=== PATIENT | male | born 1980 | race African-American/Black ===

== ENCOUNTER 2018-07-26 18:09 | Emergency (ER) | payer SELFPAY ==
[2018-07-26 18:34] LABS: #Basophils 0.1 thou/uL (0.0-0.2); #Eosinphils 0.1 thou/uL (0.0-0.7); #Lymphocytes 2.1 thou/uL (1.20-3.40); #Monocytes 0.7 thou/uL (0.11-0.59); #Neutrophils 3.6 thou/uL (1.40-6.50); %Basophils 1.3 % (0.0-1.0); %Monocytes 10.7 % (0.0-10.0); Hemoglobin 13.2 g/dL (14.0-18.0); Mean Corpuscular HGB CONC 32.3 g/dL (32.0-36.0); Mean Corpuscular Hemoglobin 28.7 pg (27.0-31.0); Mean Corpuscular Volume 88.9 fL (78.0-98.0); Mean Platelet Volume 8.7 fL (7.4-10.4); Platelet Count 278 thou/uL (130-400); RBC Distribution Width 10.6 % (11.5-14.5); Red Blood Cell (RBC) Count 4.61 mill/uL (4.70-6.10); White Blood Cell (WBC) Count 6.6 thou/uL (4.8-10.8)
[2018-07-26 18:57] LABS: ALT (SGPT) 24 U/L (8-55); AST (SGOT) 38 U/L (5-34); Albumin 4.5 g/dL (3.5-5.0); Alkaline Phosphatase 83 U/L (40-150); Anion Gap 13 mmol/L (10-20); BUN (Urea Nitrogen) 11 mg/dL (8.9-20.6); Bilirubin, Total 1.4 mg/dL (0.2-1.2); Calc. Creatinine Clearance 0 mL/min (70-130); Calcium 9.4 mg/dL (7.8-10.44); Carbon Dioxide 27 mmol/L (22-29); Chloride 97 mmol/L (98-107); Estimated GFR-MDRD 72; Globulin 3.7 g/dL (2.4-3.5); Glucose 80 mg/dL (70-105); Lipase 23 U/L (8-78); Potassium 3.4 mmol/L (3.5-5.1); Protein, Total 8.2 g/dL (6.0-8.3); Sodium 134 mmol/L (136-145)
== END 2018-07-26 19:10 | disposition home or self-care (01) ==
LOC: ERS 18:09
DX: R11.2 Nausea with vomiting, unspecified (principal); I10 Essential (primary) hypertension; F17.210 Nicotine dependence, cigarettes, uncomplicated
CPT/HCPCS: 36415; 80053; 83690; 85025; 99284

== ENCOUNTER 2018-08-21 10:42 | Emergency (ER) | payer SELFPAY ==
[2018-08-21 11:16] LABS: #Basophils 0.1 thou/uL (0.0-0.2); #Eosinphils 0.1 thou/uL (0.0-0.7); #Lymphocytes 2.3 thou/uL (1.20-3.40); #Monocytes 0.6 thou/uL (0.11-0.59); #Neutrophils 2.1 thou/uL (1.40-6.50); %Basophils 2.2 % (0.0-1.0); %Eosinophils 1.3 % (0.0-10.0); %Lymphocytes 44.1 % (21.0-51.0); %Monocytes 11.5 % (0.0-10.0); %Neutrophils 40.9 % (42.0-75.0); Hemoglobin 11.3 g/dL (14.0-18.0); Mean Corpuscular HGB CONC 34.4 g/dL (32.0-36.0); Mean Corpuscular Hemoglobin 29.8 pg (27.0-31.0); Mean Corpuscular Volume 86.7 fL (78.0-98.0); Mean Platelet Volume 8.7 fL (7.4-10.4); Platelet Count 279 thou/uL (130-400); RBC Distribution Width 10.5 % (11.5-14.5); White Blood Cell (WBC) Count 5.2 thou/uL (4.8-10.8)
[2018-08-21 11:38] LABS: ALT (SGPT) 27 U/L (8-55); AST (SGOT) 35 U/L (5-34); Albumin 3.9 g/dL (3.5-5.0); Alkaline Phosphatase 61 U/L (40-150); Anion Gap 11 mmol/L (10-20); BUN (Urea Nitrogen) 10 mg/dL (8.9-20.6); Bilirubin, Total 1.1 mg/dL (0.2-1.2); Calc. Creatinine Clearance 0 mL/min (70-130); Calcium 8.8 mg/dL (7.8-10.44); Carbon Dioxide 26 mmol/L (22-29); Chloride 94 mmol/L (98-107); Estimated GFR-MDRD 87; Globulin 2.7 g/dL (2.4-3.5); Glucose 85 mg/dL (70-105); Lipase 17 U/L (8-78); Potassium 3.9 mmol/L (3.5-5.1); Protein, Total 6.6 g/dL (6.0-8.3); Sodium 127 mmol/L (136-145)
[2018-08-21 11:50] LABS: Bilirubin Negative (Negative); Blood, Urine Negative (Negative); Clarity CLEAR (Clear); Glucose, Urine (Dipstick) Negative (Negative); Leukocyte Negative (Negative); Nitrite Negative (Negative); Protein, Urine (Dipstick) Negative (Neg-Trace); Specific Gravity, Urine 1.011 (1.002-1.036); pH, Urine 7.5 (5.0-9.0)
[2018-08-21] MEDS ORDERED: Ondansetron PF 4 MG/2 ML Vial ONE (13:34)
[2018-08-21] MEDS ORDERED: Ketorolac Tromethamine 30 MG/ML VIAL ONE (13:34)
== END 2018-08-21 14:18 | disposition home or self-care (01) ==
LOC: ERS 10:42
DX: R10.9 Unspecified abdominal pain (principal); Z71.6 Tobacco abuse counseling; I10 Essential (primary) hypertension; F17.210 Nicotine dependence, cigarettes, uncomplicated; Z79.899 Other long term (current) drug therapy
CPT/HCPCS: 36415; 80053; 81003; 83690; 85025; 96361; 96374; 96375; 99406; J1885; J2405

== ENCOUNTER 2018-11-18 17:27 | Emergency (ER) | payer SELFPAY ==
[2018-11-18] MEDS ORDERED: Ketorolac Tromethamine 30 MG/ML VIAL ONE (18:15)
[2018-11-18] MEDS ORDERED: Acetaminophen 325 MG TAB ONE (18:15)
== END 2018-11-18 18:53 | disposition home or self-care (01) ==
LOC: ERS 17:27
DX: G89.29 Other chronic pain (principal); M54.9 Dorsalgia, unspecified; R05 Cough; I10 Essential (primary) hypertension; F17.210 Nicotine dependence, cigarettes, uncomplicated; Z79.899 Other long term (current) drug therapy
CPT/HCPCS: 99281; J1885

== ENCOUNTER 2018-12-24 14:24 | Emergency (ER) | payer SELFPAY ==
[2018-12-24] MEDS ORDERED: Ondansetron PF 4 MG/2 ML Vial ONE (16:42)
[2018-12-24 16:45] LABS: #Basophils 0.1 thou/uL (0.0-0.2); #Eosinphils 0.2 thou/uL (0.0-0.7); #Lymphocytes 2.5 thou/uL (1.20-3.40); #Monocytes 0.7 thou/uL (0.11-0.59); #Neutrophils 2.1 thou/uL (1.40-6.50); %Basophils 1.2 % (0.0-1.0); %Eosinophils 3.7 % (0.0-10.0); %Monocytes 13.2 % (0.0-10.0); %Neutrophils 37.9 % (42.0-75.0); Hemoglobin 11.1 g/dL (14.0-18.0); Mean Corpuscular HGB CONC 33.3 g/dL (32.0-36.0); Mean Corpuscular Hemoglobin 30.3 pg (27.0-31.0); Mean Corpuscular Volume 91.2 fL (78.0-98.0); Mean Platelet Volume 8.9 fL (7.4-10.4); Platelet Count 206 thou/uL (130-400); RBC Distribution Width 10.8 % (11.5-14.5); Red Blood Cell (RBC) Count 3.66 mill/uL (4.70-6.10); White Blood Cell (WBC) Count 5.6 thou/uL (4.8-10.8)
[2018-12-24 17:06] LABS: ALT (SGPT) 59 U/L (8-55); AST (SGOT) 56 U/L (5-34); Albumin 3.9 g/dL (3.5-5.0); Alkaline Phosphatase 56 U/L (40-150); Anion Gap 12 mmol/L (10-20); BUN (Urea Nitrogen) 19 mg/dL (8.9-20.6); Bilirubin, Total 0.6 mg/dL (0.2-1.2); Calc. Creatinine Clearance 0 mL/min (70-130); Calcium 9.2 mg/dL (7.8-10.44); Carbon Dioxide 24 mmol/L (22-29); Chloride 99 mmol/L (98-107); Estimated GFR-MDRD 79; Globulin 2.7 g/dL (2.4-3.5); Glucose 98 mg/dL (70-105); Potassium 3.6 mmol/L (3.5-5.1); Protein, Total 6.6 g/dL (6.0-8.3); Sodium 131 mmol/L (136-145)
[2018-12-24] MEDS ORDERED: Ketorolac Tromethamine 30 MG/ML VIAL ONE (18:22)
== END 2018-12-24 18:33 | disposition home or self-care (01) ==
LOC: ERS 14:24
DX: E86.0 Dehydration (principal); I10 Essential (primary) hypertension; F17.210 Nicotine dependence, cigarettes, uncomplicated
CPT/HCPCS: 80053; 85025; 93005; 96361; 96374; 96375; J1885; J2405

== ENCOUNTER 2019-08-11 08:38 | Inpatient (IN) | payer OTHER, SELFPAY ==
[2019-08-11] MEDS ORDERED: Iopamidol-370 76% 500 ML 1 ML ONE (09:25)
[2019-08-11 09:45] LABS: ALT (SGPT) 34 U/L (8-55); AST (SGOT) 46 U/L (5-34); Albumin 4.3 g/dL (3.5-5.0); Alkaline Phosphatase 87 U/L (40-110); Anion Gap 18 mmol/L (10-20); BUN (Urea Nitrogen) 18 mg/dL (8.9-20.6); Bilirubin, Total 1.1 mg/dL (0.2-1.2); CK (CPK) 699 U/L (30-200); Calc. Creatinine Clearance 0 mL/min (70-130); Calcium 8.8 mg/dL (7.8-10.44); Carbon Dioxide 21 mmol/L (22-29); Chloride 101 mmol/L (98-107); Estimated GFR-MDRD 69; Globulin 3.7 g/dL (2.4-3.5); Glucose 76 mg/dL (70-105); Lipase 6 U/L (8-78); Potassium 3.7 mmol/L (3.5-5.1); Sodium 136 mmol/L (136-145)
--- NOTE | 2019-08-11 09:56 | RAD ---
PORTABLE CHEST: DATE: 08/11/2019. PROVIDED CLINICAL HISTORY: Cough and shortness of breath. FINDINGS: Cardiac silhouette appears prominent, which may be at least partially on the basis of portable techni que. There is bilateral perihilar airspace disease. There is no evidence for pleural fluid or pneum othorax. IMPRESSION: Bilateral perihilar airspace disease. This could reflect edema, pneumonia, as well as other etiologi es. Followup is recommended. POS: MARLEE
[2019-08-11] MEDS ORDERED: Azithromycin 500 MG VIAL ONE (10:06)
[2019-08-11] MEDS ORDERED: Nitroglycerin 2% Ointment 1 INCH/1 GM Packet ONE (10:06)
[2019-08-11] MEDS ORDERED: Aspirin Chewable 81 MG TAB ONE (10:06)
[2019-08-11 10:07] LABS: #Basophils 0.1 thou/uL (0.0-0.2); #Eosinphils 0.1 thou/uL (0.0-0.7); #Monocytes 0.9 thou/uL (0.11-0.59); #Neutrophils 8.4 thou/uL (1.40-6.50); %Basophils 0.5 % (0.0-1.0); %Eosinophils 0.7 % (0.0-10.0); %Lymphocytes 17.3 % (21.0-51.0); %Monocytes 7.7 % (0.0-10.0); %Neutrophils 73.9 % (42.0-75.0); Hemoglobin 11.4 g/dL (14.0-18.0); Mean Corpuscular HGB CONC 31.7 g/dL (32.0-36.0); Mean Corpuscular Hemoglobin 30.2 pg (27.0-31.0); Mean Corpuscular Volume 95.3 fL (78.0-98.0); Platelet Count 279 thou/uL (130-400); RBC Distribution Width 11.9 % (11.5-14.5); Red Blood Cell (RBC) Count 3.76 mill/uL (4.70-6.10); White Blood Cell (WBC) Count 11.3 thou/uL (4.8-10.8)
[2019-08-11 10:07] LABS: CKMB 6.4 ng/mL (0-6.6)
[2019-08-11] MEDS ORDERED: Hydroxychloroquine Sulfate 200 MG TAB PO SCH (10:30)
--- NOTE | 2019-08-11 11:03 | CT ---
Exam: CT angiogram of the chest HISTORY: Cough. Malaise. Suspect COVID COMPARISON: None TECHNIQUE: CT angiogram of the chest is performed in the axial plane. Three-dimensional reformatted i mages are submitted for interpretation FINDINGS: Mediastinum: No mass, lymphadenopathy or hematoma. HEART: Normal size. No significant pericardial fluid. Aorta: No aneurysm or dissection Upper solid abdominal viscera: No abnormality enhancement. Trachea and central bronchi: Patent Pleural spaces: Small bilateral effusions Lung parenchyma: Bilateral groundglass opacities with crazy paving. Groundglass opacities have a some what more central appearance Pneumothorax: None Osseous structures: No lytic or blastic lesions Pulmonary arteries: Adequate contrast opacification pulmonary arterial system to the level of segment al arteries. No filling defect to suggest pulmonary embolism IMPRESSION: 1. No evidence of pulmonary artery embolism to the level of the segmental arteries 2. Bilateral pleural effusions 3. Bilateral groundglass opacities, along with crazy painting. The possibility of bilateral pneumonia such as COVID cannot be excluded. The groundglass opacities that is slightly more central appearance and typically presents for COVID. Correlate for pulmonary edema.
[2019-08-11] MEDS ORDERED: Vancomycin 1 GM/200 ML BAG ONE (11:23)
[2019-08-11] MEDS ORDERED: Cefepime 2 GM VIAL ONE (11:23)
[2019-08-11] MEDS ORDERED: Lorazepam 2 MG/ML VIAL ONE (12:06)
[2019-08-11 13:20] LABS: Troponin I 0.032 ng/mL (< 0.028)
[2019-08-11] MEDS ORDERED: Ondansetron PF 4 MG/2 ML Vial IVP PRN (14:24)
[2019-08-11] MEDS ORDERED: Sodium Chloride 0.9% 1,000 ML IV SCH (14:24)
[2019-08-11] MEDS ORDERED: Ondansetron ODT 4 MG TAB SL PRN (14:24)
--- NOTE | 2019-08-11 14:33 | PDOC.HHP ---
Hospitalist HPI - History of Present Illness shortness of breath History of Present Illness: This is a 39 year old male with no past medical history who presents to the ER with shortness of breath. He is unclear when it started. He also has been having a cough but unable to describe the quality or states how long it has been going on for. He denies chest pain, chest congestion, fevers, chills, runny nose, sore throat. He works at [employer]. He does not know if he has had any sick contacts. ED Course: BP was 171/123 on arrival. Patient was afebrile. EKG showed sinus tachycardia. Troponin mildly elevated. D-dimer was elevated so CTA was done which showed no evidence of PE, bilateral pleural effusions and bilateral ground glass opacities. Patient received Iv vancomycin, cefepime, levaquin, and plaquenil and was admitted for further workup. Hospitalist ROS - Review of Systems Constitutional: denies: fever, chills Respiratory: denies: cough, dry Cardiovascular: denies: chest pain, palpitations Hospitalist History - Past Medical History Other Medical History: None - Past Surgical History Other Surgical History: Unable to obtain - Family History Other Family History: He has family that lives nearby. Does not know family history - Social History Smoking Status: Unknown if ever smoked Alcohol: reports: Occassional Occupation: He works at [employer] - Exam General Appearance: NAD, awake alert General - other findings: tachypneic, difficulty in answering questions. RR 36 Eye: PERRL, anicteric sclera ENT: normocephalic atraumatic, no oropharyngeal lesions Neck: supple, no JVD Heart: RRR, no murmur, no gallops, no rubs Respiratory: CTAB, no rales, no ronchi Respiratory - other findings: diminished breath sounds bilaterally Gastrointestinal: soft, non-tender, non-distended, normal bowel sounds Extremities: no cyanosis, no clubbing, no edema Skin: normal turgor, no lesions, no rashes Neurological: cranial nerve grossly intact, normal sensation to touch, no focal deficits, no new deficit Hospitalist Results - Labs Result Diagrams: 08/11/19 09:49 08/11/19 09:03 Lab results: WBC 11.3 thou/uL (4.8-10.8) H 08/11/19 09:49 Hgb 11.4 g/dL (14.0-18.0) L 08/11/19 09:49 Hct 35.9 % (42.0-52.0) L 08/11/19 09:49 MCV 95.3 fL (78.0-98.0) 08/11/19 09:49 Plt Count 279 thou/uL (130-400) 08/11/19 09:49 Neutrophils % 73.9 % (42.0-75.0) 08/11/19 09:49 Sodium 136 mmol/L (136-145) 08/11/19 09:03 Potassium 3.7 mmol/L (3.5-5.1) 08/11/19 09:03 Chloride 101 mmol/L (98-107) 08/11/19 09:03 Carbon Dioxide 21 mmol/L (22-29) L 08/11/19 09:03 BUN 18 mg/dL (8.9-20.6) 08/11/19 09:03 Creatinine 1.38 mg/dL (0.7-1.3) H 08/11/19 09:03 Glucose 76 mg/dL (70-105) 08/11/19 09:03 Calcium 8.8 mg/dL (7.8-10.44) 08/11/19 09:03 Total Bilirubin 1.1 mg/dL (0.2-1.2) 08/11/19 09:03 AST 46 U/L (5-34) H 08/11/19 09:03 ALT 34 U/L (8-55) 08/11/19 09:03 Alkaline Phosphatase 87 U/L (40-110) 08/11/19 09:03 Creatine Kinase 699 U/L (30-200) H 08/11/19 09:03 CK-MB (CK-2) 6.4 ng/mL (0-6.6) 08/11/19 09:03 Troponin I 0.032 ng/mL (< 0.028) H 08/11/19 12:13 B-Natriuretic Peptide 1034.6 pg/mL (0-100) H 08/11/19 09:49 Serum Total Protein 8.0 g/dL (6.0-8.3) 08/11/19 09:03 Albumin 4.3 g/dL (3.5-5.0) 08/11/19 09:03 Lipase 6 U/L (8-78) L 08/11/19 09:03 Hospitalist H&P A/P - Plan Plan: CTA: reviewed, bilateral opacities, pleural effusions This is a 39 year old male presenting with bilateral pneumonia Acute hypoxic respiratory failure secondary to multifocal pneumonia - WBC up to 11.3. He was started on vancomycin, cefepime and levaquin due to severe symptoms. He was also given plaquenil empirically .Will hold off on further - troponin indeterminate, downtrended. - COVId testing sent and was negative - check ABG - check respiratory viral panel - consider pulm or ID consult tomorrow if not improving LINN - creatinine up to 1.38, hydrate with IV fluids - check UA Anemia - Hb 11, will monitor Transaminitis - AST up to 46. Will monitor COde status: full code
[2019-08-11 15:56] LABS: Troponin I 0.031 ng/mL (< 0.028)
[2019-08-11 18:01] LABS: SARS-CoV-2 MS2 Positive; SARS-CoV-2 N Gene Negative; SARS-CoV-2 S Gene Negative; SARS-CoV-2 orf1ab Negative
--- NOTE | 2019-08-11 19:03 | PDOC.FMACP ---
Advance Care Planning - Note Participants: patient Summary: Advanced Care Planning was discussed. The diagnosis, prognosis and goals of care were discussed. Appropriate forms and documentation to accomplish the goals of care were discussed. All questions were answered. The Palliative Care Team will be engaged to assist with completion of any outstanding forms that are needed. Patient would like to be full code and sister to be primary decision maker if he cannot make decisions for himself
[2019-08-11 20:56] LABS: Base Excess (BEa) 1.1 mEq/L (-2.0 to +3.0); CO2 Tension 32.5 mmHg (35.0-45.0); Carboxyhemoglobin (COHb) 1.2 gm% (0.0-3.0); Hemoglobin (Hb) 11.4 g/dL (14.0-18.0); O2 Tension (PaO2), arterial 77.2 mmHg (80.0-100.0); Potassium - ABG Lab 3.85 mmol/L (3.70-5.30); pH, Arterial 7.49 (7.35-7.45)
[2019-08-11 20:58] LABS: ALV-art Gradient 138.855 (0-20)
[2019-08-11] MEDS: Cefepime 2 GM in Sodium Chloride 0.9% 100 ML IVPB SCH (21:19)
[2019-08-11] MEDS: Sodium Chloride 0.9% 1,000 ML IV SCH (21:20)
[2019-08-11 21:40] LABS: Bacteria/HPF None Seen HPF (None Seen); Bilirubin Negative (Negative); Blood, Urine Negative (Negative); Clarity Clear (Clear); Glucose, Urine (Dipstick) Normal (Negative); Leukocyte Negative Leu/uL (Negative); Nitrite Negative (Negative); Protein, Urine (Dipstick) Negative (Neg-Trace); RBC/HPF 0-3 HPF (0-3); Squamous Epithelial None Seen HPF (0-3); Urobilinogen Normal mg/dL (Less than 2); WBC/HPF 0-3 HPF (0-3)
[2019-08-11 21:44] LABS: Urine Culture Reflex No No
[2019-08-11] MEDS: Vancomycin 1 GM in Premix Bag 1 BAG IVPB SCH (23:08)
[2019-08-12] MEDS: Sodium Chloride 0.9% 1,000 ML IV SCH (03:24)
[2019-08-12] MEDS: Cefepime 2 GM in Sodium Chloride 0.9% 100 ML IVPB SCH ×4 (03:25→23:56)
[2019-08-12 04:48] LABS: Hemoglobin 11.3 g/dL (14.0-18.0); Mean Corpuscular HGB CONC 32.6 g/dL (32.0-36.0); Mean Corpuscular Hemoglobin 29.9 pg (27.0-31.0); Mean Corpuscular Volume 91.7 fL (78.0-98.0); Platelet Count 283 thou/uL (130-400); RBC Distribution Width 11.6 % (11.5-14.5); Red Blood Cell (RBC) Count 3.78 mill/uL (4.70-6.10); White Blood Cell (WBC) Count 10.2 thou/uL (4.8-10.8)
[2019-08-12 05:09] LABS: Anion Gap 12 mmol/L (10-20); BUN (Urea Nitrogen) 16 mg/dL (8.9-20.6); Calc. Creatinine Clearance 87 mL/min (70-130); Calcium 8.3 mg/dL (7.8-10.44); Carbon Dioxide 20 mmol/L (22-29); Chloride 99 mmol/L (98-107); Estimated GFR-MDRD 87; Glucose 92 mg/dL (70-105); Potassium 3.9 mmol/L (3.5-5.1); Sodium 127 mmol/L (136-145)
[2019-08-12] MEDS ORDERED: cloNIDine 0.1 MG TAB PO PRN (08:00)
[2019-08-12] MEDS: Acetaminophen 325 MG TAB PO PRN (10:03)
[2019-08-12] MEDS: Vancomycin 1 GM in Premix Bag 1 BAG IVPB SCH (11:50)
[2019-08-12 13:15] LABS: HIV (1/2) Antibody/Antigen Non-Reactive (NonReactive); HIV 1/2 INDEX 0.19 S/CO (<1.00)
--- NOTE | 2019-08-12 16:10 | PDOC.HOSPP ---
- Subjective Encounter Date: 08/12/19 Encounter Time: 11:30 Subjective: The patient is doing much better. He states he wasn't able to breathe or talk yesterday. He reports some epistaxis and hemoptysis today that was mild - Objective Vital Signs & Weight: Vital Signs (12 hours) Temp Pulse Resp BP BP Pulse Ox 08/12/19 15:55 98.1 F 95 20 170/117 H 100 08/12/19 11:00 98.2 F 100 20 152/105 H 95 08/12/19 10:03 175/117 H 08/12/19 07:31 98.3 F 105 H 20 175/123 H 96 Weight Weight 155 lb 10.342 oz I&O: 08/11/19 08/12/19 08/13/19 06:59 06:59 06:59 Intake Total 1891 Output Total 1600 Balance 291 Result Diagrams: 08/12/19 04:30 08/12/19 04:30 Hospitalist ROS - Review of Systems Constitutional: denies: fever, chills - Medication Medications: Active Medications Generic Name Dose Route Start Last Admin Trade Name Freq PRN Reason Stop Dose Admin Acetaminophen 650 mg 08/12/19 09:22 08/12/19 10:03 Tylenol PO 650 mg Q6H PRN Administration Moderate Pain (4-6) Clonidine 0.1 mg 08/12/19 08:00 08/12/19 10:03 Catapres PO 0.1 mg DAILYPRN PRN Administration SBP Greater Than 180 Levofloxacin 750 mg/ Device 150 mls @ 100 mls/hr 08/12/19 11:00 08/12/19 10: 03 IVPB 150 mls 1100 RISHABH Administration Vancomycin HCl 1 gm/ Device 200 mls @ 200 mls/hr 08/11/19 23:00 08/12/19 11: 50 IVPB 200 mls 1100,2300 RISHABH Administration - Exam General Appearance: NAD, awake alert Eye: PERRL, anicteric sclera ENT: normocephalic atraumatic, no oropharyngeal lesions Neck: supple, no JVD Heart: RRR, no murmur, no gallops, no rubs Respiratory: CTAB, no wheezes, no rales, no ronchi Gastrointestinal: soft, non-tender, non-distended, normal bowel sounds Extremities: no cyanosis, no clubbing, no edema Skin: normal turgor, no lesions, no rashes Neurological: cranial nerve grossly intact, normal sensation to touch, no focal deficits, no new deficit Musculoskeletal: normal tone, normal strength, no muscle wasting Psychiatric: normal affect, normal behavior, A&O x 3, oriented to person Hosp A/P - Plan This is a 39 year old male presenting with bilateral pneumonia Acute hypoxic respiratory failure secondary to multifocal pneumonia - WBC up to 11.3. He was started on vancomycin, cefepime and levaquin due to severe symptoms. He was also given plaquenil empirically . Blood cultures are negative. Procal normal today - troponin indeterminate, downtrended. - COVId testing sent and was negative - ABG showed mild respiratory alkalosis - respiratory viral panel negative - will check HIV test, LOREN and ANCA Hyponatremia - possibly SIADH? - sodium worsened to 127. Will stop IV fluids - reevaluate Epistaxis/hemoptysis - resolved -repeat coags if reoccurs LINN - resolved Anemia - Hb 11, will monitor Transaminitis - AST up to 46. Will repeat tomorrow
[2019-08-12] MEDS: Morphine 2 MG/ML SYRINGE SLOW IVP PRN ×2 (18:39→22:37)
[2019-08-12] MEDS ORDERED: hydrALAZINE 10 MG TAB PO PRN (19:57)
[2019-08-12] MEDS ORDERED: Lisinopril 5 MG TAB PO SCH (20:00)
[2019-08-13 05:33] LABS: Anion Gap 15 mmol/L (10-20); BUN (Urea Nitrogen) 18 mg/dL (8.9-20.6); Calc. Creatinine Clearance 85 mL/min (70-130); Calcium 8.5 mg/dL (7.8-10.44); Carbon Dioxide 18 mmol/L (22-29); Chloride 99 mmol/L (98-107); Estimated GFR-MDRD 85; Glucose 83 mg/dL (70-105); Potassium 4.2 mmol/L (3.5-5.1); Sodium 128 mmol/L (136-145)
[2019-08-13] MEDS: Morphine 2 MG/ML SYRINGE SLOW IVP PRN ×2 (05:50→11:10)
[2019-08-13 06:55] LABS: Hemoglobin 11.9 g/dL (14.0-18.0); Mean Corpuscular HGB CONC 32.5 g/dL (32.0-36.0); Mean Corpuscular Hemoglobin 29.9 pg (27.0-31.0); Mean Corpuscular Volume 92.1 fL (78.0-98.0); Mean Platelet Volume 8.4 fL (7.4-10.4); Platelet Count 258 thou/uL (130-400); RBC Distribution Width 11.6 % (11.5-14.5); Red Blood Cell (RBC) Count 3.97 mill/uL (4.70-6.10); White Blood Cell (WBC) Count 10.7 thou/uL (4.8-10.8)
[2019-08-13] MEDS: Cefepime 2 GM in Sodium Chloride 0.9% 100 ML IVPB SCH ×2 (08:03→17:49)
[2019-08-13] MEDS ORDERED: Carvedilol 6.25 MG TAB PO SCH ×2 (08:41→08:45)
[2019-08-13] MEDS ORDERED: Lisinopril 5 MG TAB PO SCH (09:00)
[2019-08-13] MEDS ORDERED: Spironolactone 25 MG TAB PO SCH (11:45)
[2019-08-13] MEDS ORDERED: Furosemide 20 MG/2 ML VIAL SLOW IVP SCH (11:45)
--- NOTE | 2019-08-13 12:15 | CON ---
DATE OF CONSULTATION: 08/13/2019 REASON FOR CONSULTATION: Congestive heart failure and severe hypertension. HISTORY OF PRESENT ILLNESS: Mr. Orlando is a 39-year-old gentleman. He came to the emergency room complaining of being unable to breathe and being unable to lay flat. When he sat up, he said he felt better. He did receive some medicine here and his breathing improved. Echocardiogram shows severely depressed left ventricular function. PAST MEDICAL HISTORY: He has a history of hypertension. He was on very low-dose medicines for blood pressure; from his description, it sounds like his blood pressure has not been well controlled. The patient denies any recent substance abuse. He said he was using some substances until 2005, but then quit using at that time. He said he has not used any substances such as cocaine in the last 14 years. The patient states he does not smoke or use alcohol. REVIEW OF SYSTEMS: CONSTITUTIONAL: No significant weight gain or loss. VISION: No changes. HEARING: No changes. PULMONARY: He has had some cough. No wheezing. GI: No nausea, vomiting, or diarrhea. He had no fever. PHYSICAL EXAMINATION: GENERAL: This is a pleasant gentleman, who has been severely hypertensive. VITAL SIGNS: Blood pressures this morning was 159/108. They have been as high as 183/120. Pulse is in the 80s. NECK: Veins are normal. Carotid, normal upstrokes. LUNGS: Clear anteriorly and posteriorly. CARDIAC: Normal S1 and normal S2. I do not hear murmur, rub, or gallop. ABDOMEN: Thin and nontender. EXTREMITIES: No clubbing or cyanosis. He has no edema. PERTINENT LABORATORY DATA: His sodium is 128. His creatinine is 1.15. Troponin 0.031. BNP is 1034. Echocardiogram shows severely depressed left ventricular function with a global hypokinesis. Ejection fraction 20% to 25%. Looking at the wall thickness, it is clearly thickened on the two dimensional images, at least moderate concentric left ventricular hypertrophy. Chest x-ray reports as outlined above. I think these findings mostly reflect congestive heart failure. ASSESSMENT: 1. Congestive heart failure, systolic and diastolic mixed, but predominantly systolic. 2. Uncontrolled hypertension. 3. Left ventricular hypertrophy in two dimensional imaging. PLAN: 1. We will add spironolactone. 2. Continue lisinopril dose, will need to be increased tomorrow. 3. Agree with carvedilol. 4. We will give him a dose of intravenous Lasix. 5. Repeat chest x-ray tomorrow. If this is clear, I would recommend a consideration for stopping the antibiotics. 6. Discussed LifeVest. We will need to contact the company to see if something arrangement can be made financially between him and the company to see if he is a candidate. I suspect this may be hypertensive heart disease based on the initial evaluation. Also, we will do a toxicology screen. He has a remote history of substance dependence. He denies any recent substance dependence. 7. We will follow with you. Job ID: [id number]
--- NOTE | 2019-08-13 12:20 | PDOC.HOSPP ---
- Subjective Encounter Date: 08/13/19 Encounter Time: 10:00 Subjective: The patient states he is feeling much better. His hemoptysis has resolved. He no longer has epistaxis and is using nasal sprays. His shortness of breath has improved. - Objective Vital Signs & Weight: Vital Signs (12 hours) Temp Pulse Resp BP Pulse Ox 08/13/19 11:19 97.8 F 86 18 146/98 H 100 08/13/19 07:04 98.5 F 83 18 156/100 H 98 08/13/19 04:00 99.4 F 92 18 159/108 H 95 Weight Weight 155 lb 10.342 oz I&O: 08/12/19 08/13/19 08/14/19 06:59 06:59 06:59 Intake Total 1891 2520 Output Total 1600 2700 Balance 291 -180 Result Diagrams: 08/13/19 06:48 08/13/19 04:51 Hospitalist ROS - Review of Systems Constitutional: denies: fever, chills Cardiovascular: denies: chest pain, palpitations - Medication Medications: Active Medications Generic Name Dose Route Start Last Admin Trade Name Freq PRN Reason Stop Dose Admin Acetaminophen 650 mg 08/12/19 09:22 08/12/19 10:03 Tylenol PO 650 mg Q6H PRN Administration Moderate Pain (4-6) Clonidine 0.1 mg 08/12/19 08:00 08/12/19 10:03 Catapres PO 0.1 mg DAILYPRN PRN Administration SBP Greater Than 180 Levofloxacin 750 mg/ Device 150 mls @ 100 mls/hr 08/12/19 11:00 08/13/19 10: 05 IVPB 150 mls 1100 RISHABH Administration Cefepime HCl 2 gm/ Sodium 100 mls @ 200 mls/hr 08/12/19 17:00 08/13/19 08:03 Chloride IVPB 100 mls 0100,0900,1700 RISHABH Administration Morphine Sulfate 2 mg 08/12/19 09:22 08/13/19 11:10 Morphine SLOW IVP 2 mg Q4H PRN Administration Severe Pain (7-10) Sodium Chloride 10 ml 08/13/19 09:00 08/13/19 10:02 Flush - Normal Saline IVF 10 ml Q12HR RISHABH Administration - Exam General Appearance: NAD, awake alert Eye: PERRL, anicteric sclera ENT: normocephalic atraumatic, no oropharyngeal lesions Neck: supple, no JVD Heart: RRR, no murmur, no gallops, no rubs Respiratory: CTAB, no wheezes, no rales, no ronchi Gastrointestinal: soft, non-tender, non-distended, normal bowel sounds Extremities: no cyanosis, no clubbing, no edema Skin: normal turgor, no lesions, no rashes Neurological: cranial nerve grossly intact, normal sensation to touch, no focal deficits, no new deficit Musculoskeletal: normal tone, normal strength, no muscle wasting Psychiatric: normal affect, normal behavior, A&O x 3, oriented to person, oriented to place Hosp A/P - Plan ECho: EF 25-30%, mild MR, mild Tr, restrictive diastolic dysfunction This is a 39 year old male presenting with bilateral pneumonia #Acute hypoxic respiratory failure secondary to multifocal pneumonia #Acute systolic heart failure - WBC up to 11.3. He was started on vancomycin, cefepime and levaquin due to severe symptoms. He was also given plaquenil empirically . Blood cultures are negative. Procal normal today . Respiratory viral panel negative - HIV test negative, LOREN and ANCA pending - troponin indeterminate, downtrended. ECHO showed EF 25-30% no wall motion abnormalities - he will be given dose of IV lasix today - patient will need a life-vest prior to discharge Hypertensive urgency - continue lisinopril 5 mg daily - added coreg 12. 5 mg daily - cardiology has added spironolactone Hyponatremia - sodium improved to 128. He will be given IV lasix x 1, re-evaluate for improvement Transaminitis - AST up to 46. Will repeat tomorrow Epistaxis/hemoptysis - resolved -repeat coags if reoccurs LINN - resolved Anemia - Hb 11, will monitor
[2019-08-13 13:59] LABS: Amphetamine Not Detected (NotDetected); Barbiturates Screen Not Detected (NotDetected); Benzodiazepine Screen Detected (NotDetected); Cocaine Metabolite Screen Detected (NotDetected); Medtox Control Line Valid? VALID (VALID); Medtox Reader # READER 4; Methadone Not Detected (NotDetected); Methamphetamine Not Detected (NotDetected); Opiate Screen Detected (NotDetected); Oxycodone Screen Not Detected (NotDetected); Phencyclidine (PCP) Not Detected (NotDetected); THC/Cannabinoid Screen Not Detected (NotDetected); Tricyclic Screen Not Detected (NotDetected)
--- NOTE | 2019-08-13 14:23 | EKG ---
Test Reason : Blood Pressure : / mmHG Vent. Rate : 106 BPM Atrial Rate : 106 BPM P-R Int : 146 ms QRS Dur : 082 ms QT Int : 354 ms P-R-T Axes : 056 -05 055 degrees QTc Int : 470 ms Sinus tachycardia Possible Left atrial enlargement Left ventricular hypertrophy Cannot rule out Septal infarct , age undetermined Abnormal ECG Confirmed by SCOTTY EDWARDS, MEAGHAN ([id number]), market editor BASHIR ABEL ([id number]) on 08/13/2019 2:23:27 PM Referred By: Confirmed By:MEAGHAN FAJARDO MD
[2019-08-13] MEDS: Carvedilol 6.25 MG TAB PO SCH (17:50)
[2019-08-13] MEDS: traMADol HCl 50 MG TAB PO SCH (20:38)
[2019-08-13] MEDS: Acetaminophen 325 MG TAB PO PRN (20:39)
[2019-08-14] MEDS: Cefepime 2 GM in Sodium Chloride 0.9% 100 ML IVPB SCH ×2 (01:07→08:02)
[2019-08-14 05:15] LABS: Anion Gap 14 mmol/L (10-20); BUN (Urea Nitrogen) 25 mg/dL (8.9-20.6); Calc. Creatinine Clearance 68 mL/min (70-130); Calcium 9.1 mg/dL (7.8-10.44); Carbon Dioxide 21 mmol/L (22-29); Chloride 101 mmol/L (98-107); Estimated GFR-MDRD 66; Glucose 111 mg/dL (70-105); Sodium 132 mmol/L (136-145)
[2019-08-14] MEDS ORDERED: Spironolactone 25 MG TAB PO SCH (08:00)
[2019-08-14] MEDS: Carvedilol 6.25 MG TAB PO SCH ×2 (08:02→16:50)
[2019-08-14] MEDS: traMADol HCl 50 MG TAB PO SCH ×3 (08:02→20:23)
[2019-08-14] MEDS ORDERED: Lisinopril 10 MG TAB PO SCH (09:00)
--- NOTE | 2019-08-14 09:55 | RAD ---
PORTABLE CHEST 1 VIEW: DATE: 08/14/2019. TIME: 5:29 AM. HISTORY: CHF. COMPARISON: 08/11/2019. FINDINGS/IMPRESSION: The heart size is normal. The lungs are expanded with improving infiltrate since the previous exam. No pneumothoraces or pleural effusions are seen. POS: AIDAA
[2019-08-14] MEDS ORDERED: Lisinopril 5 MG TAB PO SCH (10:00)
[2019-08-14] MEDS: hydrALAZINE 25 MG TAB PO SCH ×3 (10:13→20:23)
--- NOTE | 2019-08-14 10:13 | PRG ---
DATE OF SERVICE: 08/14/2019 SUBJECTIVE: Mr. Orlando feels much better. He says his breathing is back to normal. OBJECTIVE: VITAL SIGNS: His blood pressure is still high at 146/98, pulse 72 and regular. LUNGS: Clear. CARDIAC: Normal S1. Normal S2. ABDOMEN: Soft and nontender. EXTREMITIES: There is no edema. PERTINENT LABORATORY DATA: Creatinine went up to 1.44. He did receive 5 mg of lisinopril and spironolactone 25 mg as well as Lasix yesterday. The toxicology screen indicated positive for opiates, but he has been receiving morphine here if needed, but is also positive for cocaine, which he says he has not done and that is "an insult." ASSESSMENT: 1. Congestive heart failure, systolic, largely related to uncontrolled hypertension. I suspect with moderate left ventricular hypertrophy. 2. Positive urine for cocaine. The patient states that he does not use cocaine and he denies using cocaine. 3. Renal insufficiency. PLAN: 1. Hydralazine 25 mg 3 times a day has been started. 2. Carvedilol, he is tolerating 12.5 mg twice a day. 3. We will resume lisinopril at a dose of 2.5 mg a day. 4. The patient has been informed about a LifeVest. He wishes to talk to the company to see if that he will be a candidate to wear that. The last complete time I talked to me, he indicates he has no funds to pay for that, but he does wish to discuss that with the company. Job ID: [id number]
--- NOTE | 2019-08-14 14:31 | PDOC.HOSPP ---
- Subjective Encounter Date: 08/14/19 Encounter Time: 10:00 Subjective: The patient feels good. Only mild productive cough. No chest pain. Patient was told that he tested positive for cocaine. He became very upset and stated that "it is an insult that my urine tested positive, because I haven't done drugs in years". Patient requests to be retested. He states that he is on parole currently and cannot violate that - Objective Vital Signs & Weight: Vital Signs (12 hours) Temp Pulse Resp BP BP BP Pulse Ox 08/14/19 12:02 97.7 F 74 20 142/97 H 98 08/14/19 10:13 74 142/100 H 08/14/19 07:48 97.8 F 72 18 146/98 H 99 08/14/19 04:18 70 18 140/97 H 100 Weight Weight 155 lb 10.342 oz I&O: 08/13/19 08/14/19 08/15/19 06:59 06:59 06:59 Intake Total 2520 1420 246 Output Total 2700 2600 Balance -180 -1180 246 Result Diagrams: 08/13/19 06:48 08/14/19 04:34 Hospitalist ROS - Review of Systems Constitutional: denies: fever, chills - Medication Medications: Active Medications Generic Name Dose Route Start Last Admin Trade Name Freq PRN Reason Stop Dose Admin Acetaminophen 650 mg 08/12/19 09:22 08/13/19 20:39 Tylenol PO 650 mg Q6H PRN Administration Moderate Pain (4-6) Carvedilol 12.5 mg 08/13/19 17:00 08/14/19 08:02 Coreg PO 12.5 mg BID-WM RISHABH Administration Clonidine 0.1 mg 08/12/19 08:00 08/12/19 10:03 Catapres PO 0.1 mg DAILYPRN PRN Administration SBP Greater Than 180 Hydralazine HCl 25 mg 08/14/19 09:00 08/14/19 10:13 Apresoline PO 25 mg TID RISHABH Administration Levofloxacin 750 mg 08/14/19 06:00 08/14/19 10:13 Levaquin PO 750 mg 0600 RISHABH Administration Morphine Sulfate 2 mg 08/12/19 09:22 08/13/19 11:10 Morphine SLOW IVP 2 mg Q4H PRN Administration Severe Pain (7-10) Sodium Chloride 10 ml 08/13/19 09:00 08/14/19 08:02 Flush - Normal Saline IVF 10 ml Q12HR RISHABH Administration Tramadol HCl 50 mg 08/13/19 21:00 08/14/19 08:02 Ultram PO 50 mg TID RISHABH Administration - Exam General Appearance: NAD, awake alert Eye: PERRL, anicteric sclera ENT: normocephalic atraumatic, no oropharyngeal lesions Neck: supple, no JVD Heart: RRR, no murmur, no gallops, no rubs Respiratory: CTAB, no wheezes, no rales, no ronchi Gastrointestinal: soft, non-tender, non-distended, normal bowel sounds Extremities: no cyanosis, no clubbing, no edema Skin: normal turgor, no lesions, no rashes Neurological: cranial nerve grossly intact, normal sensation to touch, no focal deficits, no new deficit Musculoskeletal: normal tone, normal strength, no muscle wasting Psychiatric: normal affect, normal behavior, A&O x 3, oriented to person Hosp A/P - Plan ECho: EF 25-30%, mild MR, mild Tr, restrictive diastolic dysfunction This is a 39 year old male presenting with bilateral pneumonia #Acute hypoxic respiratory failure secondary to multifocal pneumonia and acute systolic heart failure - WBC up to 11.3. He was started on vancomycin, cefepime and levaquin due to severe symptoms. He was also given plaquenil empirically . Blood cultures are negative. Procal normal . Respiratory viral panel negative. Discontinued cefepime and vanc - continue levaquin for three more days - HIV test negative, LOREN and ANCA pending - troponin indeterminate, downtrended. ECHO showed EF 25-30% no wall motion abnormalities. S/p IV lasix 08/12 - card consulted with regards to Drive. . [employer] company to come speak to the patient LINN - creatinine up to 1.44 - lisinopril dose reduced Hypertensive urgency - start hydralazine 25 mg po tid - lisinopril reduced to 2.5 mg daily - continue coreg 12.5 mg po bid +Cocaine use - patient denies cocaine use - repeat utox pending Hyponatremia - sodium improved to 132. He will be given IV lasix x 1, re-evaluate for improvement Transaminitis - AST up to 46. Will repeat tomorrow Epistaxis/hemoptysis - resolved -repeat coags if reoccurs Anemia - Hb 11, will monitor
[2019-08-14 18:15] LABS: Medtox Reader # READER 4
[2019-08-14 18:16] LABS: Amphetamine Not Detected (NotDetected); Barbiturates Screen Not Detected (NotDetected); Benzodiazepine Screen Detected (NotDetected); Cocaine Metabolite Screen Not Detected (NotDetected); Medtox Control Line Valid? VALID (VALID); Methadone Not Detected (NotDetected); Methamphetamine Not Detected (NotDetected); Opiate Screen Not Detected (NotDetected); Oxycodone Screen Not Detected (NotDetected); Phencyclidine (PCP) Not Detected (NotDetected); THC/Cannabinoid Screen Not Detected (NotDetected); Tricyclic Screen Not Detected (NotDetected)
[2019-08-14] MEDS: Acetaminophen 325 MG TAB PO PRN (20:24)
[2019-08-15 04:48] LABS: Anion Gap 13 mmol/L (10-20); BUN (Urea Nitrogen) 25 mg/dL (8.9-20.6); Calc. Creatinine Clearance 73 mL/min (70-130); Calcium 8.8 mg/dL (7.8-10.44); Carbon Dioxide 19 mmol/L (22-29); Chloride 101 mmol/L (98-107); Estimated GFR-MDRD 72; Glucose 85 mg/dL (70-105); Sodium 129 mmol/L (136-145)
[2019-08-15] MEDS: Carvedilol 6.25 MG TAB PO SCH (08:12)
[2019-08-15] MEDS: hydrALAZINE 25 MG TAB PO SCH (08:13)
[2019-08-15] MEDS: traMADol HCl 50 MG TAB PO SCH ×2 (08:13→15:22)
[2019-08-15] MEDS ORDERED: Carvedilol 25 MG TAB PO SCH ×2 (08:30→17:00)
[2019-08-15] MEDS ORDERED: Carvedilol 6.25 MG TAB PO SCH ×2 (08:30→17:00)
[2019-08-15] MEDS ORDERED: Lisinopril 2.5 MG TAB PO SCH (09:00)
[2019-08-15] MEDS ORDERED: Regadenoson 0.4 MG/5 ML SYRINGE ONE (09:38)
[2019-08-15] MEDS ORDERED: Acetaminophen/Codeine 30-300mg Tablet PO PRN (11:18)
[2019-08-15] MEDS ORDERED: Sodium Chloride 0.9% 200 ML IV PRN (11:18)
[2019-08-15] MEDS ORDERED: Nitroglycerin 0.4 MG TAB (25 Tab Bottle) SL PRN (11:18)
[2019-08-15] MEDS ORDERED: hydrALAZINE 20 MG/ML VIAL SLOW IVP PRN (11:48)
[2019-08-15] MEDS ORDERED: Furosemide 20 MG/2 ML VIAL SLOW IVP SCH (14:00)
[2019-08-15 14:13] LABS: Cytoplasmic (C-ANCA) <1:20 titer (Neg:<1:20); Myeloperoxidase AutoAbs <9.0 U/mL (0.0-9.0); Perinuclear (P-ANCA) <1:20 titer (Neg:<1:20); Proteinase-3 AutoAbs Less than 3.5 U/mL (0.0-3.5)
[2019-08-15] MEDS ORDERED: hydrALAZINE 25 MG TAB PO SCH (15:00)
[2019-08-15] MEDS ORDERED: Iron, Sodium Ferric Gluconate 250 MG in Sodium Chloride 0.9% 100 ML IVPB SCH (16:00)
[2019-08-15 16:22] VITALS: TEMP 97.7
--- NOTE | 2019-08-15 16:25 | PDOC.HOSPP ---
- Subjective Encounter Date: 08/15/19 Encounter Time: 09:00 Subjective: The patient reports that he only has a mild cough, but no orthopnea or SOB. He denies chest pain. [facility] spoke to the patient and they are reviewing his chart to see if he can get a vest today - Objective Vital Signs & Weight: Vital Signs (12 hours) Temp Pulse Resp BP Pulse Ox 08/15/19 16:16 97.7 F 78 16 150/104 H 100 08/15/19 15:22 73 08/15/19 12:48 97.9 F 73 16 133/99 H 100 08/15/19 08:00 99 08/15/19 07:32 98.2 F 78 18 164/108 H 99 Weight Weight 155 lb 10.342 oz I&O: 08/14/19 08/15/19 08/16/19 06:59 06:59 06:59 Intake Total 1420 1119 Output Total 2600 715 Balance -1180 404 Result Diagrams: 08/13/19 06:48 08/15/19 04:22 Hospitalist ROS - Review of Systems Constitutional: denies: fever, chills - Medication Medications: Active Medications Generic Name Dose Route Start Last Admin Trade Name Freq PRN Reason Stop Dose Admin Acetaminophen 650 mg 08/12/19 09:22 08/14/19 20:24 Tylenol PO 650 mg Q6H PRN Administration Moderate Pain (4-6) Clonidine 0.1 mg 08/12/19 08:00 08/12/19 10:03 Catapres PO 0.1 mg DAILYPRN PRN Administration SBP Greater Than 180 Hydralazine HCl 50 mg 08/15/19 15:00 08/15/19 15:22 Apresoline PO 50 mg TID RISHABH Administration Lisinopril 2.5 mg 08/15/19 09:00 08/15/19 08:20 Zestril PO Not Given DAILY RISHABH Sodium Chloride 10 ml 08/13/19 09:00 08/15/19 10:55 Flush - Normal Saline IVF Not Given Q12HR RISHABH Tramadol HCl 50 mg 08/13/19 21:00 08/15/19 15:22 Ultram PO 50 mg TID RISHABH Administration - Exam General Appearance: NAD, awake alert Eye: PERRL, anicteric sclera ENT: normocephalic atraumatic, no oropharyngeal lesions Neck: supple, no JVD Heart: RRR, no murmur, no gallops, no rubs Respiratory: CTAB, no wheezes, no rales, no ronchi Gastrointestinal: soft, non-tender, non-distended, normal bowel sounds Extremities: no cyanosis, no clubbing, no edema Skin: normal turgor, no lesions, no rashes Hosp A/P - Plan ECho: EF 25-30%, mild MR, mild Tr, restrictive diastolic dysfunction Chest X ray 08/13: improving infiltrates CTA thorax 08/10: bilateral pleural effusions Chest X ray 08/10: bilateral perihilar airspace disease This is a 39 year old male presenting with shortness of breath, hypoxia, tachycardia, admitted for pneumonia vs CHF #Acute hypoxic respiratory failure secondary to pneumonia vs acute systolic heart failure - WBC up to 11.3 on admission with chest Xray showing multifocal pneumonia. He was started on vancomycin, cefepime and levaquin due to severe symptoms. He was also given plaquenil empirically . Blood cultures are negative. Procal normal. COVID 19 negative. Respiratory viral panel negative. Discontinued cefepime and vanc. Received levaquin until 08/14. Discontinued today - HIV, LOREN and ANCA negative - troponin was indeterminate. ECHO showed EF 25-30% no wall motion abnormalities. S/p IV lasix 08/12. Repeat chest X ray showed improvement - card consulted, stress test ordered today. - [facility] contact, currently pending [facility] Hypertensive urgency - increase hydralazine to 50 mg tid - increased coreg to 25 mg po bid - lisinopril 2.5 mg daily LINN - creatinine improved to 1.3. Lisinopril reduced +Cocaine use - patient denies cocaine use - repeat utox negative for cocaine. Patient denies drug use Hyponatremia - sodium 129 . He received lasix 08/12. Will monitor Transaminitis - AST up to 46. Will repeat tomorrow Epistaxis/hemoptysis - resolved -repeat coags if reoccurs Anemia - Hb 11, will monitor
--- NOTE | 2019-08-15 17:17 | NM ---
EXAM: CARDIAC SPECT HISTORY: Chest pain, CHF, hypertension, smoker TECHNIQUE: A myocardial perfusion scan was performed using the single isotope 2 day protocol with deepa hnetium 99m sestamibi. [31 mCi] was injected intravenously for the rest exam followed by 31 mCifor the stress study. Pharmacologic stress with Lexiscan was monitored and interpreted by Dr. Tolliver FINDINGS: No fixed or reversible defects are seen. The left ventricular cavity is dilated. Gated SPECT LVEF: 27% Wall motion exam: Global hypokinesis IMPRESSION: No evidence of reversible ischemia
[2019-08-15 17:56] VITALS: BP 124/81
--- NOTE | 2019-08-15 20:02 | DIS ---
DATE OF ADMISSION: 08/11/2019 DATE OF DISCHARGE: 08/15/2019 DISCHARGE DIAGNOSES: 1. Acute hypoxic respiratory failure secondary to pneumonia versus acute systolic heart failure. 2. Hypertensive urgency. 3. Acute kidney injury. 4. Possible cocaine use 5. Hyponatremia. 6. Transaminitis. 7. Epistaxis/hemoptysis. 8. Anemia. CONSULTATIONS: Cardiology with Dr. Regino Carrillo. PROCEDURES: None. BRIEF HISTORY OF PRESENT ILLNESS: This is a 39-year-old male with past medical history of hypertension, who presented to the emergency room with shortness of breath. The patient was unclear when it started. He was not able to give a good history due to severe tachypneic. He did report a cough, but denied chest pain or chest congestion. The patient had presented with blood pressure of 171/123 on arrival. His troponin was slightly elevated. EKG showed sinus tachycardia. D-dimer was elevated, so a CTA was done, which showed bilateral pleural effusions and bilateral ground-glass opacities. He was tested for COVID at an outside hospital and transferred here. [facility]ic [facility]. HOSPITAL COURSE: 1. Acute hypoxic respiratory failure secondary to multifocal pneumonia versus acute systolic heart failure: The patient was initially placed on vancomycin, cefepime, and Levaquin. His vancomycin was discontinued on the and he was continued on cefepime and Levaquin. His white count resolved the following day. His procalcitonin was checked, which was normal. COVID testing was negative. Respiratory viral panel was negative. HIV, LOREN and ANCA were also negative. He completed 5 days of antibiotics on the . CTA of his chest showed no evidence of PE. ECHO on the showed an EF of 20% to 25%. Cardiology was consulted and he was given some IV Lasix. His repeat chest x-ray on the was normal. He was weaned off oxygen and has been transitioned to room air. He was given a LifeVest on discharge. He should follow up with Dr. Carrillo in a month. He did have a stress test prior to discharge, which was normal. 2. Hypertensive emergency: The patient had presented with a blood pressure of 160s/120s. He was started on hydralazine, Coreg, and lisinopril. His hydralazine was increased to 50 t.i.d. and Coreg increased to 25 b.i.d. on 08/14. His blood pressure improved to 120 systolic with this. The patient refuses lisinopril due to his elevated creatinine. This can be resumed upon discharge if his LINN resolves and if his blood pressure is still uncontrolled. He should follow up with his PCP for additional blood pressure titration. 3. LINN: The patient had a creatinine of 1.44 on the 30. He was given spironolactone the day prior and lisinopril. These were subsequently held and his creatinine improved to 1.34 on 08/14. He did have a UA, which was unremarkable. He should have a repeat BMP in 1 week. 4. Positive cocaine use: The patient did have a U-Tox, which tested positive for cocaine. The patient inherently denies any type of drug use. He requested a repeat U-Tox, which was normal. He was advised to avoid any substance on discharge. 5. Hyponatremia: The patient had a sodium of 136 on admission. He was given IV fluids initially for concern for sepsis, but his sodium dropped to 127. Further IV fluids were held. His sodium on the day of discharge was 129. He is asymptomatic without any dizziness or lightheadedness. This can be monitored as an outpatient. 6. Transaminitis: The patient had an AST of 46. This may have been secondary to congestion from heart failure. This can be repeated as an outpatient. The patient denies any abdominal pain. 7. Epistaxis/hemoptysis: The patient did have few mild episodes of hemoptysis while in the hospital. This is most likely secondary to the oxygen he was wearing. He had no further episodes when his oxygen was removed. His ANCA and LOREN came back negative. DISCHARGE PHYSICAL EXAMINATION: VITAL SIGNS: Temperature 97.7, heart rate 78, respiratory rate 16, O2 saturation 100% on room air, and blood pressure 120 systolic. GENERAL: The patient is alert, awake, and oriented x3. CVS: Regular rate and rhythm with no murmurs, rubs, or gallops. LUNGS: Clear to auscultation bilaterally. ABDOMEN: Positive bowel sounds. Soft, nontender, and nondistended. EXTREMITIES: No edema. PERTINENT LABORATORY DATA: CBC on 08/12: White blood cell count 10.7, hemoglobin 11.9, hematocrit 36.6, and platelet count 258. BMP on 08/14: Sodium 129, bicarb 19, and creatinine 1.34. Serum osmolarity: 270. Urine osmolarity: 472. LFTs: AST 46, ALT 34, and alkaline phosphatase 87. Troponin I: 0.048, 0.032, 0.031. Lipase: 6. Procalcitonin: 0.26. U-tox: Positive for opiates, benzodiazepine, and cocaine on the . U-Tox on 08/13: Positive for benzodiazepine. Immunology panel on 08/11: ANCA, anti-myeloperoxidase, atypical p-ANCA, anti-proteinase 3 is negative. COVID PCR on 08/10: Not detected. HIV-1 and HIV-2 antibody on 08/11: Nonreactive. IMAGING DATA: Chest x-ray on 08/10: Bilateral perihilar airspace disease. CTA thorax on 08/10: No evidence of PE. Bilateral pleural effusions. Chest x-ray on 08/13: Normal. Nuclear stress test on 08/13: No evidence of reversible ischemia. EF 27%. Global hypokinesis. Echo on 08/12: EF 20% to 25%. Restrictive diastolic function. Mild MR. Mild TR. DISCHARGE CONDITION: Stable. ACTIVITY: As tolerated. DIET: Heart-healthy diet with 1.5 L fluid restriction. DISCHARGE MEDICATIONS: 1. Coreg 25 mg p.o. b.i.d. 2. Hydralazine 50 mg p.o. t.i.d. 3. Clonidine 0.1 mg p.o. p.r.n. 4. Lasix 20 mg p.o. daily. 5. Lisinopril 2.5 mg p.o. daily p.r.n. All other home medications were resumed. DISCHARGE INSTRUCTIONS: The patient needs to follow up with his PCP in a week and Dr. Carrillo in a month. He should have a repeat BMP in a week and repeat LFTs in a week. He was prescribed a LifeVest on discharge. Job ID: [id number] [facility]
--- NOTE | 2019-08-18 05:47 | PQF ---
Salvador Orlando REESE, [facility] [id number] CLINICAL DOCUMENTATION CLARIFICATION FORM: POST DISCHARGE Addendum to original discharge summary date: ____ Late entry note date: __ DATE:08/18/2019 ATTN: Dr Colin, Salma Please exercise your independent, professional judgment in responding to the clarification form. Clinical indicators are provided on the bottom of this form for your review Please check appropriate box(es): [ X] Sepsis due to Pneumonia [ ] Severe sepsis with acute organ dysfunction of: (Examples: respiratory failure, encephalopathy, acute kidney failure, other) [ ] Septic Shock [ ] Localized infection without sepsis [ ] Other diagnosis [ ] Unable to determine In addition, please specify: Present on Admission (POA): [ ] Yes [ ] No [ ] Unable to determine For continuity of documentation, please document condition throughout progress notes and discharge summary. Thank You. CLINICAL INDICATORS - SIGNS / SYMPTOMS / LABS Laboratory 08/10 WBC 11.3, Plt count 279, Neutrophils 73.9, procalcitonin 0.26 Blood culture 08/10 No growth on 5 days Vital signs 08/10 -BP 182/129, Pulse 101, Resp 36, Temp 97.9 ED notes p3 SIRS scoring Yes pt did meet at least 2 criteria H&P p1 08/10 Dr Colin presented to ER with SOB, unclear when it started H&P p3 08/10 Dr Colin Acute hypoxic respiratory failure secondary to multifocal pneumonia H&P p4 08/10 Dr Colin LINN, creatinine up tp 1.38 RISK FACTORS H&P p3 08/10 Pneumonia H&P p4 08/10 Anemia Consult p1 08/12 HTN Consult p1 08/12 CHF ED Notes p1 08/10 Smoker TREATMENTS: JUN 17 IV Cefepime 2gm JUN 17 IV Vancomycin 1gm Jun 17 IV Levaquin 750 mg JUN 17 Zithromax 500mg oral JUN 17 IVF NS 1L Blood culture 08/10 Respiratory panel 08/10 Oxygen 4L Chest X-ray 08/10 (This form is maintained as a part of the permanent medical record) 2014 [employer]. All Rights Reserved [email or web address]
--- NOTE | 2019-08-18 05:47 | PQF ---
Salvador Orlando, [facility] [id number] CLINICAL DOCUMENTATION CLARIFICATION FORM: POST DISCHARGE Addendum to original discharge summary date: ____ Late entry note date: __ DATE:08/18/2019 ATTN: Dr Colin, [facility] Please exercise your independent, professional judgment in responding to the clarification form. Clinical indicators are provided on the bottom of this form for your review Acute Mixed Systolic/Diatolic CHF Present on Admission (POA): [ X ] Yes [ ] No [ ] Unable to determine Coding guidelines require hospitals to identify whether a diagnosis was present on admission (POA) or not. To accurately assign the appropriate POA indicator, this information must be clearly documented within the medical record. CLINICAL INDICATORS - SIGNS / SYMPTOMS / LABS Laboratory 08/10 CK-MB 6.4. BNP 1034.6, Troponin 0.048; 0.032; 0.031 Vital signs 08/10 -BP 182/129, Pulse 101, Resp 36, Temp 97.9 H&P p1 08/10 Dr Colin presenred to ER with SOB, unclear when it started TTE 08/11 Impression EF is visually at 20-25% Consult p2 08/12 Congestive heart failure, systolic and diastolic mixez, but predominantly systolic Discharge summary p1 08/14 Acute hypoxic respiratotu failure secondary to pneumonia versus Acute systolic heart failure Chest Xray p1 08/10 Impression:Bilateral perihilar airspace disease.This could refect edema RISK FACTORS: H&P p3 08/10 Pneumonia H&P p3 08/10 - Acute hypoxic respiratory failure H&P p4 08/10 LINN H&P p4 08/10 Anemia Consult p1 08/12 Left ventriculophy Discharge summary p2 08/14 Hypertensive emergency ED Notes p1 08/10 Smoker TREATMENT: JUN 17 Aspirin 81mg oral JUN 17 Catapress 0.1mg oral MRA 08/12 IV lasix 20mg JUN 17 Coreg 12.5 mg oral Respiratoray panel 08/10 Oxygen 4L Cardiology consult 08/12 Regino Polanco Chest X-ray 08/10 TTE 08/11 Blayne Campos (This form is maintained as a part of the permanent medical record) 2014 [employer]. All Rights Reserved [email or web address]
--- NOTE | 2019-08-18 19:52 | PQF ---
Salvador Orlando, [facility] [id number] CLINICAL DOCUMENTATION CLARIFICATION FORM: POST DISCHARGE Addendum to original discharge summary date: ____ Late entry note date: __ DATE:08/18/2019 ATTN: Dr Colin Salma Please exercise your independent, professional judgment in responding to the clarification form. Clinical indicators are provided on the bottom of this form for your review Sepsis Present on Admission (POA): [X ] Yes [ ] No [ ] Unable to determine Coding guidelines require hospitals to identify whether a diagnosis was present on admission (POA) or not. To accurately assign the appropriate POA indicator, this information must be clearly documented within the medical record. CLINICAL INDICATORS - SIGNS / SYMPTOMS / LABS Laboratory 08/10 WBC 11.3, Plt count 279, Neutrophils 73.9, procalcitonin 0.26 Blood culture 08/10 No growth on 5 days Vital signs 08/10 -BP 182/129, Pulse 101, Resp 36, Temp 97.9 ED notes p3 SIRS scoring Yes pt did meet at least 2 criteria H&P p1 08/10 Dr Colin presented to ER with SOB, unclear when it started H&P p3 08/10 Dr Colin Acute hypoxic respiratory failure secondary to multifocal pneumonia H&P p4 08/10 Dr Colin LINN, creatinine up tp 1.38 Physician Documentation p1 08/17 "Sepsis due to Pneumonia" RISK FACTORS H&P p3 08/10 Pneumonia H&P p4 08/10 Anemia Consult p1 08/12 HTN Consult p1 08/12 CHF ED Notes p1 08/10 Smoker TREATMENTS: JUN 17 IV Cefepime 2gm JUN 17 IV Vancomycin 1gm Jun 17 IV Levaquin 750 mg JUN 17 Zithromax 500mg oral JUN 17 IVF NS 1L Blood culture 08/10 Respiratory panel 08/10 Oxygen 4L Chest X-ray 08/10 (This form is maintained as a part of the permanent medical record) 2014 [employer] All Rights Reserved Luz Elena MTDChari
[2019-08-19 16:41] LABS: ANA Symphony (Qualitative) Negative (Negative); ANA Symphony (Quantitative) 0.3 Ratio (< 0.7 Negative); dsDNA IgG Antibody 0.8 IU/mL (<10 Negative)
== END 2019-08-15 18:50 | disposition home or self-care (01) | DRG 871 ==
LOC: ERS 08:38 → 2SW 10:34
PROVIDERS: ADMIT Internal Medicine; ATTEND Internal Medicine
PROC: 8E0ZXY6 Isolation (ICD-10-PCS; principal; 2019-08-11)
DX: A41.9 Sepsis, unspecified organism (principal); J18.9 Pneumonia, unspecified organism; Z20.828 Contact with and (suspected) exposure to other viral communicable diseases; J96.01 Acute respiratory failure with hypoxia; I50.41 Acute combined systolic (congestive) and diastolic (congestive) heart failure; N17.9 Acute kidney failure, unspecified; E87.1 Hypo-osmolality and hyponatremia; R04.2 Hemoptysis; I16.1 Hypertensive emergency; I11.0 Hypertensive heart disease with heart failure; R74.0 Nonspecific elevation of levels of transaminase and lactic acid dehydrogenase [LDH]; D64.9 Anemia, unspecified; R04.0 Epistaxis; F17.210 Nicotine dependence, cigarettes, uncomplicated; Z28.21 Immunization not carried out because of patient refusal; Z79.899 Other long term (current) drug therapy
CPT/HCPCS: 36415; 36416; 71045; 71275; 78452; 80048; 80053; 80306; 81001; 82550; 82553; 82805; 83520; 83690; 83880; 83930; 83935; 84145; 84484; 85025; 85027; 85379; 86038; 86225; 86256; 87040; 87389; 87633; 87635; 93005; 93017; 93306; 96361; 96365; 96366; 96367; 96368; 96375; 99292; A9500; J0456; J0692; J1940; J1956; J2060; J2270; J2785; J3370; J3490; Q9967; U0003

== ENCOUNTER 2019-09-27 04:11 | Emergency (ER) | payer SELFPAY ==
[2019-09-27] MEDS ORDERED: Acetaminophen 500 MG TAB ONE (04:35)
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
== END 2019-09-27 05:11 | disposition home or self-care (01) ==
LOC: ERS 04:11
DX: S16.1XXA Strain of muscle, fascia and tendon at neck level, initial encounter (principal); S39.012A Strain of muscle, fascia and tendon of lower back, initial encounter; I11.0 Hypertensive heart disease with heart failure; I50.9 Heart failure, unspecified; Z79.899 Other long term (current) drug therapy; Z79.891 Long term (current) use of opiate analgesic; V43.52XA Car driver injured in collision with other type car in traffic accident, initial encounter
CPT/HCPCS: 72125

== ENCOUNTER 2020-01-18 19:57 | Observation (INO) | payer OTHER, SELFPAY ==
--- NOTE | 2020-01-18 21:23 | RAD ---
PORTABLE CHEST: History: Shortness of breath. Malaise. FINDINGS: The lungs appear clear. No evidence of infiltrate. Heart and mediastinum appear normal. IMPRESSION: No acute process identified. POS: AGW
[2020-01-18 21:40] LABS: #Basophils 0.1 thou/uL (0.0-0.2); #Eosinphils 0.1 thou/uL (0.0-0.7); #Lymphocytes 2.2 thou/uL (1.20-3.40); #Monocytes 0.6 thou/uL (0.11-0.59); #Neutrophils 1.9 thou/uL (1.40-6.50); %Basophils 1.4 % (0.0-1.0); %Eosinophils 1.8 % (0.0-10.0); %Lymphocytes 45.4 % (21.0-51.0); %Monocytes 12.8 % (0.0-10.0); %Neutrophils 38.5 % (42.0-75.0); Hemoglobin 10.1 g/dL (14.0-18.0); Mean Corpuscular HGB CONC 32.9 g/dL (32.0-36.0); Mean Corpuscular Hemoglobin 29.8 pg (27.0-31.0); Mean Corpuscular Volume 90.4 fL (78.0-98.0); Mean Platelet Volume 8.7 fL (7.4-10.4); Platelet Count 243 thou/uL (130-400); RBC Distribution Width 10.5 % (11.5-14.5); Red Blood Cell (RBC) Count 3.39 mill/uL (4.70-6.10); White Blood Cell (WBC) Count 4.9 thou/uL (4.8-10.8)
[2020-01-18] MEDS ORDERED: Acetaminophen 500 MG TAB ONE (21:53)
[2020-01-18] MEDS ORDERED: Ibuprofen 800 MG TAB ONE (21:53)
[2020-01-18 22:00] LABS: ALT (SGPT) 33 U/L (8-55); AST (SGOT) 50 U/L (5-34); Albumin 4.4 g/dL (3.5-5.0); Alkaline Phosphatase 54 U/L (40-110); Anion Gap 15 mmol/L (10-20); BUN (Urea Nitrogen) 10 mg/dL (8.9-20.6); Bilirubin, Total 1.4 mg/dL (0.2-1.2); CK (CPK) 874 U/L (30-200); Calc. Creatinine Clearance 0 mL/min (70-130); Calcium 8.6 mg/dL (7.8-10.44); Carbon Dioxide 22 mmol/L (22-29); Chloride 99 mmol/L (98-107); Estimated GFR-MDRD 72; Glucose 77 mg/dL (70-105); Potassium 3.5 mmol/L (3.5-5.1); Protein, Total 7.4 g/dL (6.0-8.3); Sodium 132 mmol/L (136-145)
[2020-01-18] MEDS ORDERED: Labetalol HCl 100 MG/20 ML VIAL ONE (23:29)
[2020-01-19 00:38] LABS: Bilirubin Negative (Negative); Blood, Urine Negative (Negative); Clarity Clear (Clear); Glucose, Urine (Dipstick) Normal (Negative); Ketone, Urine Negative (Negative); Leukocyte Negative Leu/uL (Negative); Nitrite Negative (Negative); Protein, Urine (Dipstick) Negative (Neg-Trace); Specific Gravity, Urine 1.007 (1.002-1.036); Urobilinogen Normal mg/dL (Less than 2)
[2020-01-19 00:44] LABS: Cocaine Metabolite Screen Not Detected (NotDetected); Medtox Reader # READER 4; Methamphetamine Not Detected (NotDetected); Phencyclidine (PCP) Not Detected (NotDetected); THC/Cannabinoid Screen Not Detected (NotDetected)
[2020-01-19 00:45] LABS: Amphetamine Not Detected (NotDetected); Barbiturates Screen Not Detected (NotDetected); Benzodiazepine Screen Not Detected (NotDetected); Medtox Control Line Valid? VALID (VALID); Methadone Not Detected (NotDetected); Opiate Screen Detected (NotDetected); Oxycodone Screen Not Detected (NotDetected); Tricyclic Screen Not Detected (NotDetected)
[2020-01-19] MEDS ORDERED: Labetalol HCl 100 MG/20 ML VIAL SLOW IVP PRN (01:10)
[2020-01-19] MEDS ORDERED: Acetaminophen 325 MG TAB PO PRN (01:10)
--- NOTE | 2020-01-19 01:19 | PDOC.HHP ---
Hospitalist HPI - History of Present Illness Generalized body aches History of Present Illness: 39-year-old gentleman with a history of congestive heart failure and hypertension presented to the emergency department with a complaint of generalized body aches including pain in bilateral shoulders, back, and legs. Patient reports doing strenuous work during the day. He denied any shortness of breath or chest pain. He denied any fever or abdominal pain or diarrhea. He endorsed occasional nonproductive cough. He is on Lasix therapy for CHF. He stated he had chronic systolic heart failure which has improved. He was initially needing a LifeVest but now does not need it anymore. Patient noted to be severely hypertensive with systolic blood pressure in the 190s in the ED. blood work also showed elevated CK level up to 900. Patient started on IV hydration, given IV labetalol to control his blood pressure. He is placed under observation for further management. Hospitalist ROS - Review of Systems Other: Except as documented, all other systems reviewed and negative. - Medication Medications: Medication Instructions Recorded Confirmed Type cloNIDine [Catapres] 0.1 mg PO PRN PRN 08/12/19 08/12/19 History traMADol HCl [Tramadol HCl] 50 mg PO TID 08/13/19 08/13/19 History Carvedilol [Coreg] 25 mg PO BID-WM #60 tab 08/15/19 Rx Furosemide 20 mg PO DAILY PRN #30 tablet 08/15/19 Rx Lisinopril 2.5 mg PO DAILY PRN #30 tab 08/15/19 08/12/19 Rx hydrALAZINE [Apresoline] 50 mg PO TID #180 tab 08/15/19 Rx Hospitalist History - Past Medical History Cardiac: reports: CHF, HTN - Past Surgical History Other Surgical History: None - Family History Other Family History: Brother has diabetes. Father of cancer. - Social History Smoking Status: Former smoker Alcohol: reports: Occassional Drugs: reports: none Occupation: He works at [employer] - Exam General Appearance: NAD, awake alert Eye: PERRL, anicteric sclera ENT: normocephalic atraumatic, no oropharyngeal lesions, moist mucosa Neck: supple, symmetric, no JVD Heart: RRR, no murmur, no gallops, normal peripheral pulses Respiratory: CTAB, no wheezes, no rales, no ronchi Gastrointestinal: soft, non-tender, non-distended, normal bowel sounds Extremities: no cyanosis, no edema Skin: normal turgor Neurological: cranial nerve grossly intact, no weakness, no focal deficits Musculoskeletal: normal tone, normal strength Psychiatric: normal affect, normal behavior, A&O x 3 Hospitalist Results - Labs Result Diagrams: 01/19/20 04:41 01/19/20 04:41 Lab results: WBC 4.9 thou/uL (4.8-10.8) 01/18/20 21:31 Hgb 10.1 g/dL (14.0-18.0) L 01/18/20 21:31 Hct 30.6 % (42.0-52.0) L 01/18/20 21:31 MCV 90.4 fL (78.0-98.0) 01/18/20 21:31 Plt Count 243 thou/uL (130-400) 01/18/20 21:31 Neutrophils % 38.5 % (42.0-75.0) L 01/18/20 21:31 Sodium 132 mmol/L (136-145) L 01/18/20 21:31 Potassium 3.5 mmol/L (3.5-5.1) 01/18/20 21:31 Chloride 99 mmol/L (98-107) 01/18/20 21:31 Carbon Dioxide 22 mmol/L (22-29) 01/18/20 21:31 BUN 10 mg/dL (8.9-20.6) 01/18/20 21:31 Creatinine 1.34 mg/dL (0.7-1.3) H 01/18/20 21:31 Glucose 77 mg/dL (70-105) 01/18/20 21:31 Calcium 8.6 mg/dL (7.8-10.44) 01/18/20 21:31 Total Bilirubin 1.4 mg/dL (0.2-1.2) H 01/18/20 21:31 AST 50 U/L (5-34) H 01/18/20 21:31 ALT 33 U/L (8-55) 01/18/20 21:31 Alkaline Phosphatase 54 U/L (40-110) 01/18/20 21:31 Creatine Kinase 874 U/L (30-200) H 01/18/20 21:31 Troponin I Less than 0.010 ng/mL (< 0.028) 01/18/20 21:31 B-Natriuretic Peptide 165.3 pg/mL (0-100) H 01/18/20 21:31 Serum Total Protein 7.4 g/dL (6.0-8.3) 01/18/20 21:31 Albumin 4.4 g/dL (3.5-5.0) 01/18/20 21:31 Urine Ketones Negative mg/dL (Negative) 01/19/20 00:25 Urine Blood Negative (Negative) 01/19/20 00:25 Urine Nitrite Negative (Negative) 01/19/20 00:25 Ur Leukocyte Esterase Negative Jose Juan/uL (Negative) 01/19/20 00:25 - Radiology Interpretation Chest x-ray Status: report reviewed by me (No acute intracranial process.) Hospitalist H&P A/P - Problem (1) Elevated CK Status: Acute (2) Myalgia Code(s): M79.10 - MYALGIA, UNSPECIFIED SITE Status: Acute (3) Accelerated hypertension Code(s): I10 - ESSENTIAL (PRIMARY) HYPERTENSION Status: Acute (4) Chronic systolic heart failure Code(s): I50.22 - CHRONIC SYSTOLIC (CONGESTIVE) HEART FAILURE Status: Acute (5) Acute renal failure Status: Acute - Plan Plan: Place under observation. Hydrate with IV normal saline. Hold Lasix for now. Check daily CK levels. Troponin is negative. Patient has no chest pain. Manage accelerated hypertension with IV labetalol as needed. Continue home antihypertensives. Monitor renal function.
[2020-01-19 02:33] LABS: SARS-CoV-2 NAA Rapid Test DETECTED (NotDetected)
[2020-01-19] MEDS ORDERED: traMADol HCl 50 MG TAB PO SCH (03:00)
[2020-01-19] MEDS ORDERED: Labetalol HCl 100 MG/20 ML VIAL ONE ×2 (03:02→08:04)
[2020-01-19] MEDS ORDERED: traMADol HCl 50 MG TAB ONE (03:02)
[2020-01-19 04:55] LABS: #Basophils 0.1 thou/uL (0.0-0.2); #Eosinphils 0.1 thou/uL (0.0-0.7); #Lymphocytes 2.2 thou/uL (1.20-3.40); #Monocytes 0.6 thou/uL (0.11-0.59); #Neutrophils 1.7 thou/uL (1.40-6.50); %Basophils 1.5 % (0.0-1.0); %Eosinophils 1.8 % (0.0-10.0); %Lymphocytes 48.1 % (21.0-51.0); %Monocytes 12.3 % (0.0-10.0); %Neutrophils 36.3 % (42.0-75.0); Mean Corpuscular Hemoglobin 30.1 pg (27.0-31.0); Mean Corpuscular Volume 91.1 fL (78.0-98.0); Platelet Count 244 thou/uL (130-400); RBC Distribution Width 10.6 % (11.5-14.5); Red Blood Cell (RBC) Count 3.33 mill/uL (4.70-6.10); White Blood Cell (WBC) Count 4.5 thou/uL (4.8-10.8)
[2020-01-19 05:14] LABS: Anion Gap 13 mmol/L (10-20); BUN (Urea Nitrogen) 9 mg/dL (8.9-20.6); CK (CPK) 748 U/L (30-200); Calc. Creatinine Clearance 0 mL/min (70-130); Calcium 8.2 mg/dL (7.8-10.44); Carbon Dioxide 21 mmol/L (22-29); Chloride 101 mmol/L (98-107); Estimated GFR-MDRD 78; Glucose 79 mg/dL (70-105); Potassium 3.5 mmol/L (3.5-5.1); Sodium 131 mmol/L (136-145)
[2020-01-19] MEDS: Carvedilol 25 MG TAB PO SCH ×2 (07:53→15:57)
[2020-01-19] MEDS ORDERED: Acetaminophen 325 MG TAB ONE (07:54)
[2020-01-19] MEDS: Sodium Chloride 0.9% 1,000 ML IV SCH ×2 (10:11→15:56)
[2020-01-19] MEDS ORDERED: Enoxaparin Sodium 30 MG/0.3 ML SYRINGE ONE (10:59)
[2020-01-19] MEDS: Enoxaparin Sodium 30 MG/0.3 ML SYRINGE SC SCH (11:04)
[2020-01-19] MEDS: hydrALAZINE 25 MG TAB PO SCH ×3 (11:05→20:15)
--- NOTE | 2020-01-19 16:22 | PDOC.EVN ---
Event Note - Event Note Event Note: Pt admitted for general body aches and + COVID-19 in addition to rhabdomyolysis on IVF's. To limit provider contact with COVID please see initial H&P regarding mgmt. Will follow up in am.
[2020-01-19 16:57] VITALS: BMI 25.4
[2020-01-20] MEDS: Sodium Chloride 0.9% 1,000 ML IV SCH (04:55)
[2020-01-20 05:31] LABS: ALT (SGPT) 32 U/L (8-55); AST (SGOT) 51 U/L (5-34); Albumin 3.9 g/dL (3.5-5.0); Alkaline Phosphatase 51 U/L (40-110); Anion Gap 12 mmol/L (10-20); BUN (Urea Nitrogen) 15 mg/dL (8.9-20.6); Bilirubin, Total 1.2 mg/dL (0.2-1.2); CK (CPK) 508 U/L (30-200); Calc. Creatinine Clearance 71 mL/min (70-130); Calcium 8.2 mg/dL (7.8-10.44); Carbon Dioxide 20 mmol/L (22-29); Chloride 101 mmol/L (98-107); Estimated GFR-MDRD 75; Globulin 2.9 g/dL (2.4-3.5); Glucose 82 mg/dL (70-105); Potassium 4.3 mmol/L (3.5-5.1); Protein, Total 6.8 g/dL (6.0-8.3); Sodium 129 mmol/L (136-145)
[2020-01-20] MEDS ORDERED: FLU VACC QS2020-21(6MOS UP)/PF 60 MCG/0.5 ML SYRINGE IM ONE (09:00)
[2020-01-20] MEDS: hydrALAZINE 25 MG TAB PO SCH (11:14)
[2020-01-20] MEDS: Carvedilol 25 MG TAB PO SCH (11:14)
[2020-01-20] MEDS: Enoxaparin Sodium 30 MG/0.3 ML SYRINGE SC SCH (11:14)
[2020-01-20 11:40] VITALS: TEMP 98.3
[2020-01-20 12:29] VITALS: BP 166/89
--- NOTE | 2020-01-21 01:24 | DIS ---
DATE OF ADMISSION: 01/19/2020 DATE OF DISCHARGE: 01/20/2020 DISCHARGE DIAGNOSES: 1. Rhabdomyolysis, improved. 2. COVID-19 positive. 3. Hypertension. 4. Cardiomyopathy. 5. Chronic kidney disease stage 2. CONSULTATIONS: None. PERTINENT LABORATORY AND X-RAY FINDINGS: Sodium ranged between 129 to 132, creatinine ranged between 1.25 to 1.34, estimated GFR ranged between 72 to 78. Total CK ranged between 508 to 874. BNP 165. CBC showed a hemoglobin of 10, hematocrit 30. Urine drug screen dated 01/19/2020, positive for opiates. COVID-19 PCR positive, 01/19/2020. Portable chest x-ray dated 01/18/2020, showed no acute cardiopulmonary process. HOSPITAL COURSE: The patient was observed after presenting with generalized body aches and myalgias with associated rhabdomyolysis with elevated total CK of over 800. The patient was placed on low volume IV fluid hydration and symptomatically treated. The patient was also noted positive for COVID-19. However, chest x-ray was unrevealing and the patient had no respiratory complaints. The patient remained on room air during the entire hospital course and had no pulmonary symptoms. The patient did clinically stabilize with IV hydration with overall total CK trending down to the 500 range by the time of discharge. I have examined the patient at the time of discharge and discussed followup instructions and the importance of ongoing oral hydration after discharge. The patient verbalizes understanding and agreement, ready for discharge on 01/20/2020. DISCHARGE MEDICATIONS: 1. Lasix 20 mg p.o. Sunday, Sunday, and Sunday. 2. Hydralazine 50 mg p.o. t.i.d. 3. Coreg 25 mg p.o. b.i.d. 4. Lisinopril 2.5 mg p.o. daily. FOLLOWUP: The patient may follow up with his primary care provider, Dr. Dixon Schofield within 7 days of discharge. CONDITION ON DISCHARGE: Stable. ACTIVITY: [place]. DIET: Heart healthy. SPECIAL INSTRUCTIONS: Continue quarantine for full 14-day time course. CODE STATUS: Full. DISPOSITION: To home, 01/20/2020. Job ID: [id number]
== END 2020-01-20 12:48 | disposition home or self-care (01) ==
LOC: ERS 19:57 → ERHOLD 01-19 02:34 → 2SW 01-19 12:42
PROVIDERS: ADMIT Internal Medicine; ATTEND Internal Medicine
DX: U07.1 COVID-19 (principal); M62.82 Rhabdomyolysis; I13.0 Hypertensive heart and chronic kidney disease with heart failure and stage 1 through stage 4 chronic kidney disease, or unspecified chronic kidney disease; N18.2 Chronic kidney disease, stage 2 (mild); I50.22 Chronic systolic (congestive) heart failure; N17.9 Acute kidney failure, unspecified; I42.9 Cardiomyopathy, unspecified; Z87.891 Personal history of nicotine dependence; Z79.899 Other long term (current) drug therapy
CPT/HCPCS: 36415; 71045; 80048; 80053; 80306; 81003; 82550; 83880; 84484; 85025; 93005; 96372; 96374; 96375; G0378; J1650; U0002

== ENCOUNTER 2020-01-23 18:33 | Emergency (ER) | payer SELFPAY ==
[2020-01-23] MEDS ORDERED: Ketorolac Tromethamine 30 MG/ML VIAL ONE (19:34)
== END 2020-01-23 19:38 | disposition home or self-care (01) ==
LOC: ERS 18:33
DX: R20.2 Paresthesia of skin (principal); I10 Essential (primary) hypertension
CPT/HCPCS: 96372; 99283; J1885

== ENCOUNTER 2020-02-11 08:33 | Emergency (ER) | payer SELFPAY | END 2020-02-11 09:10 | disposition home or self-care (01) | LOC: ERS 08:33 | DX: G56.03 Carpal tunnel syndrome, bilateral upper limbs (principal); I11.0 Hypertensive heart disease with heart failure; I50.9 Heart failure, unspecified; Z79.899 Other long term (current) drug therapy; X50.3XXA Overexertion from repetitive movements, initial encounter; Y99.0 Civilian activity done for income or pay | CPT/HCPCS: 99283 ==

== ENCOUNTER 2021-07-16 06:50 | Emergency (ER) | payer BC ==
[2021-07-16] MEDS ORDERED: Metoclopramide HCl 10 MG/2 ML VIAL ONE (07:48)
[2021-07-16] MEDS ORDERED: hydrALAZINE 20 MG/ML VIAL ONE (07:48)
[2021-07-16] MEDS ORDERED: hydrALAZINE 25 MG TAB ONE (08:47)
[2021-07-16 08:58] LABS: ALT (SGPT) 25 U/L (8-55); AST (SGOT) 37 U/L (5-34); Albumin 4.5 g/dL (3.5-5.0); Alkaline Phosphatase 79 U/L (40-110); Anion Gap 16 mmol/L (10-20); BUN (Urea Nitrogen) 12 mg/dL (8.9-20.6); Bilirubin, Total 1.2 mg/dL (0.2-1.2); CK (CPK) 315 U/L (30-200); Calc. Creatinine Clearance 0 mL/min (70-130); Calcium 9.5 mg/dL (7.8-10.44); Carbon Dioxide 21 mmol/L (22-29); Chloride 100 mmol/L (98-107); Globulin 3.9 g/dL (2.4-3.5); Glucose 88 mg/dL (70-105); Lipase 21 U/L (8-78); Potassium 4.1 mmol/L (3.5-5.1); Protein, Total 8.4 g/dL (6.0-8.3); Sodium 133 mmol/L (136-145)
[2021-07-16 09:03] LABS: #Eosinphils 0.1 thou/uL (0.0-0.7); #Lymphocytes 1.9 thou/uL (1.20-3.40); #Monocytes 0.6 thou/uL (0.11-0.59); #Neutrophils 4.6 thou/uL (1.40-6.50); %Basophils 0.2 % (0.0-1.0); %Eosinophils 0.8 % (0.0-10.0); %Lymphocytes 26.4 % (21.0-51.0); %Monocytes 8.3 % (0.0-10.0); %Neutrophils 64.3 % (42.0-75.0); Hemoglobin 10.9 g/dL (14.0-18.0); Mean Corpuscular HGB CONC 32.9 g/dL (32.0-36.0); Mean Corpuscular Hemoglobin 30.2 pg (27.0-31.0); Mean Corpuscular Volume 91.9 fL (78.0-98.0); Mean Platelet Volume 8.5 fL (7.4-10.4); Platelet Count 251 thou/uL (130-400); RBC Distribution Width 11.9 % (11.5-14.5); Red Blood Cell (RBC) Count 3.62 mill/uL (4.70-6.10); White Blood Cell (WBC) Count 7.2 thou/uL (4.8-10.8)
== END 2021-07-16 09:35 | disposition home or self-care (01) ==
LOC: MERGE 06:50 → ERS 06:50
DX: R53.1 Weakness (principal); R51.9 Headache, unspecified; I10 Essential (primary) hypertension; F17.210 Nicotine dependence, cigarettes, uncomplicated; Z79.899 Other long term (current) drug therapy
CPT/HCPCS: 36415; 71045; 80053; 82550; 83690; 83880; 84484; 85025; 93005; 96372; J0360; J2765

== ENCOUNTER 2021-07-19 09:41 | Emergency (ER) | payer BC, SELFPAY ==
[2021-07-19] MEDS ORDERED: hydrALAZINE 25 MG TAB ONE (10:46)
[2021-07-19] MEDS ORDERED: Ibuprofen 200 MG TAB ONE (10:46)
[2021-07-19] MEDS ORDERED: Acetaminophen 500 MG TAB ONE (10:46)
[2021-07-19] MEDS ORDERED: Lisinopril 10 MG TAB ONE (10:46)
[2021-07-19] MEDS ORDERED: Mag-Al 1200 mg/1200 mg/30 ML UDCUP ONE (10:47)
== END 2021-07-19 11:35 | disposition left against medical advice (07) ==
LOC: ERS 09:41
DX: R10.9 Unspecified abdominal pain (principal); I10 Essential (primary) hypertension; D50.9 Iron deficiency anemia, unspecified; F17.210 Nicotine dependence, cigarettes, uncomplicated; Z79.899 Other long term (current) drug therapy
CPT/HCPCS: 99283

== ENCOUNTER 2021-12-16 16:09 | Emergency (ER) | payer BC | END 2021-12-16 18:48 | disposition home or self-care (01) | LOC: ERS 16:09 | DX: B86 Scabies (principal); D50.9 Iron deficiency anemia, unspecified; I11.0 Hypertensive heart disease with heart failure; I50.9 Heart failure, unspecified; F17.210 Nicotine dependence, cigarettes, uncomplicated | CPT/HCPCS: 99282 ==

== ENCOUNTER 2021-12-22 04:36 | Emergency (ER) | payer BC ==
[2021-12-22 05:39] LABS: #Basophils 0.1 thou/uL (0.0-0.2); #Eosinphils 0.3 thou/uL (0.0-0.7); #Lymphocytes 2.7 thou/uL (1.20-3.40); #Neutrophils 4.1 thou/uL (1.40-6.50); %Eosinophils 3.8 % (0.0-10.0); %Lymphocytes 33.1 % (21.0-51.0); %Neutrophils 50.1 % (42.0-75.0); Hemoglobin 9.8 g/dL (14.0-18.0); Mean Corpuscular HGB CONC 31.2 g/dL (32.0-36.0); Mean Corpuscular Hemoglobin 28.3 pg (27.0-31.0); Mean Corpuscular Volume 90.9 fL (78.0-98.0); Mean Platelet Volume 7.5 fL (7.4-10.4); Platelet Count 359 thou/uL (130-400); RBC Distribution Width 10.7 % (11.5-14.5); Red Blood Cell (RBC) Count 3.47 mill/uL (4.70-6.10); White Blood Cell (WBC) Count 8.1 thou/uL (4.8-10.8)
[2021-12-22 05:58] LABS: AST (SGOT) 43 U/L (5-34); Albumin 4.2 g/dL (3.5-5.0); Alkaline Phosphatase 70 U/L (40-110); Anion Gap 14 mmol/L (10-20); BUN (Urea Nitrogen) 15 mg/dL (8.9-20.6); Bilirubin, Total 1.1 mg/dL (0.2-1.2); Calc. Creatinine Clearance 0 mL/min (70-130); Calcium 9.3 mg/dL (7.8-10.44); Carbon Dioxide 26 mmol/L (22-29); Chloride 103 mmol/L (98-107); Estimated GFR 57; Globulin 3.8 g/dL (2.4-3.5); Glucose 99 mg/dL (70-105); Sodium 139 mmol/L (136-145)
[2021-12-22 06:06] LABS: Alcohol Less than 10 mg/dL (Less than 10)
[2021-12-22 06:23] LABS: ALT (SGPT) 30 U/L (8-55)
[2021-12-22 06:37] LABS: Salicylate Less than 8.0 mg/dL (15.0-30.0)
== END 2021-12-22 06:39 | disposition home or self-care (01) ==
LOC: ERS 04:36
DX: R44.1 Visual hallucinations (principal); I10 Essential (primary) hypertension; D50.9 Iron deficiency anemia, unspecified; F17.210 Nicotine dependence, cigarettes, uncomplicated
CPT/HCPCS: 36415; 80053; 80307; 84443; 85025; 99285

== ENCOUNTER 2022-01-07 13:32 | Emergency (ER) | payer BC | END 2022-01-07 15:45 | disposition home or self-care (01) | LOC: ERS 13:32 | DX: L29.9 Pruritus, unspecified (principal); F22 Delusional disorders; I11.0 Hypertensive heart disease with heart failure; I50.9 Heart failure, unspecified; E78.5 Hyperlipidemia, unspecified; D64.9 Anemia, unspecified; F17.210 Nicotine dependence, cigarettes, uncomplicated; Z79.899 Other long term (current) drug therapy | CPT/HCPCS: 99284 ==

== ENCOUNTER 2022-02-17 02:01 | Emergency (ER) | payer BC, SELFPAY ==
[2022-02-17 03:49] LABS: ALT (SGPT) 20 U/L (8-55); AST (SGOT) 28 U/L (5-34); Albumin 4.7 g/dL (3.5-5.0); Alkaline Phosphatase 106 U/L (40-110); Anion Gap 15 mmol/L (10-20); BUN (Urea Nitrogen) 18 mg/dL (8.9-20.6); Calc. Creatinine Clearance 0 mL/min (70-130); Calcium 9.9 mg/dL (7.8-10.44); Carbon Dioxide 23 mmol/L (22-29); Chloride 106 mmol/L (98-107); Estimated GFR 58; Globulin 4.2 g/dL (2.4-3.5); Glucose 79 mg/dL (70-105); Potassium 3.8 mmol/L (3.5-5.1); Protein, Total 8.9 g/dL (6.0-8.3); Sodium 140 mmol/L (136-145)
[2022-02-17 03:50] LABS: #Basophils 0.1 thou/uL (0.0-0.2); #Eosinphils 0.2 thou/uL (0.0-0.7); #Lymphocytes 2.8 thou/uL (1.20-3.40); #Monocytes 0.6 thou/uL (0.11-0.59); #Neutrophils 5.3 thou/uL (1.40-6.50); %Basophils 1.2 % (0.0-1.0); %Eosinophils 2.6 % (0.0-10.0); %Lymphocytes 30.8 % (21.0-51.0); %Neutrophils 58.4 % (42.0-75.0); Hemoglobin 11.5 g/dL (14.0-18.0); Mean Corpuscular HGB CONC 32.6 g/dL (32.0-36.0); Mean Platelet Volume 8.5 fL (7.4-10.4); Platelet Count 377 thou/uL (130-400); RBC Distribution Width 10.5 % (11.5-14.5); Red Blood Cell (RBC) Count 3.83 mill/uL (4.70-6.10); White Blood Cell (WBC) Count 9.1 thou/uL (4.8-10.8)
[2022-02-17 04:03] LABS: Acetaminophen Less than 10.0 mcg/mL (10.0-30.0); Alcohol Less than 10 mg/dL (Less than 10); Salicylate Less than 8.0 mg/dL (15.0-30.0)
[2022-02-17] MEDS ORDERED: hydrOXYzine 25 MG TAB ONE (04:42)
[2022-02-17] MEDS ORDERED: hydrALAZINE 25 MG TAB ONE (05:32)
[2022-02-17 05:50] LABS: Bilirubin Negative (Negative); Blood, Urine Negative (Negative); Clarity Clear (Clear); Glucose, Urine (Dipstick) Normal (Negative); Ketone, Urine Negative (Negative); Leukocyte Negative Leu/uL (Negative); Nitrite Negative (Negative); Protein, Urine (Dipstick) Negative (Neg-Trace); Specific Gravity, Urine 1.018 (1.002-1.036); Urobilinogen Normal mg/dL (Less than 2); pH, Urine 5.5 (5.0-9.0)
[2022-02-17 05:59] LABS: Amphetamine Not Detected (NotDetected); Barbiturates Screen Not Detected (NotDetected); Benzodiazepine Screen Not Detected (NotDetected); Cocaine Metabolite Screen Detected (NotDetected); Methadone Not Detected (NotDetected); Methamphetamine Not Detected (NotDetected); Opiate Screen Detected (NotDetected); Oxycodone Screen Not Detected (NotDetected); Phencyclidine (PCP) Not Detected (NotDetected); THC/Cannabinoid Screen Not Detected (NotDetected); Tricyclic Screen Not Detected (NotDetected)
== END 2022-02-17 06:31 | disposition home or self-care (01) ==
LOC: ERS 02:01
DX: I11.0 Hypertensive heart disease with heart failure (principal); I50.9 Heart failure, unspecified; E78.5 Hyperlipidemia, unspecified; F17.210 Nicotine dependence, cigarettes, uncomplicated
CPT/HCPCS: 36415; 80053; 80306; 80307; 81003; 85025; 93005

== ENCOUNTER 2022-04-25 03:42 | Emergency (ER) | payer SELFPAY ==
[2022-04-25] MEDS ORDERED: hydrOXYzine 25 MG TAB ONE (04:22)
[2022-04-25 05:23] LABS: ALT (SGPT) 16 U/L (8-55); AST (SGOT) 31 U/L (5-34); Acetaminophen Less than 10.0 mcg/mL (10.0-30.0); Albumin 4.3 g/dL (3.5-5.0); Alcohol Less than 10 mg/dL (Less than 10); Alkaline Phosphatase 82 U/L (40-110); Anion Gap 13 mmol/L (10-20); BUN (Urea Nitrogen) 18 mg/dL (8.9-20.6); Bilirubin, Total 0.8 mg/dL (0.2-1.2); Calc. Creatinine Clearance 0 mL/min (70-130); Carbon Dioxide 25 mmol/L (22-29); Chloride 103 mmol/L (98-107); Estimated GFR 48; Globulin 3.8 g/dL (2.4-3.5); Glucose 88 mg/dL (70-105); Potassium 3.4 mmol/L (3.5-5.1); Protein, Total 8.1 g/dL (6.0-8.3); Salicylate Less than 8.0 mg/dL (15.0-30.0); Sodium 138 mmol/L (136-145)
[2022-04-25 05:32] LABS: #Eosinphils 0.2 thou/uL (0.0-0.7); #Monocytes 0.5 thou/uL (0.11-0.59); #Neutrophils 2.9 thou/uL (1.40-6.50); %Basophils 0.6 % (0.0-1.0); %Eosinophils 3.6 % (0.0-10.0); %Lymphocytes 35.6 % (21.0-51.0); %Neutrophils 51.3 % (42.0-75.0); Mean Corpuscular HGB CONC 31.6 g/dL (32.0-36.0); Mean Corpuscular Hemoglobin 28.2 pg (27.0-31.0); Mean Corpuscular Volume 89.2 fl (78.0-98.0); Mean Platelet Volume 9.6 fL (7.4-10.4); Platelet Count 330 10x3/uL (130-400); RBC Distribution Width 11.3 % (11.5-14.5); White Blood Cell (WBC) Count 5.6 10x3/uL (4.8-10.8)
[2022-04-25 06:14] LABS: Bilirubin Negative (Negative); Blood, Urine Negative (Negative); Clarity Clear (Clear); Glucose, Urine (Dipstick) Normal (Negative); Ketone, Urine Negative (Negative); Leukocyte Negative Leu/uL (Negative); Nitrite Negative (Negative); Protein, Urine (Dipstick) Negative (Neg-Trace); Specific Gravity, Urine 1.011 (1.002-1.036); Urobilinogen Normal mg/dL (Less than 2); pH, Urine 6.5 (5.0-9.0)
[2022-04-25 06:34] LABS: Amphetamine Not Detected (NotDetected); Barbiturates Screen Not Detected (NotDetected); Benzodiazepine Screen Not Detected (NotDetected); Cocaine Metabolite Screen Detected (NotDetected); Methadone Not Detected (NotDetected); Methamphetamine Not Detected (NotDetected); Opiate Screen Not Detected (NotDetected); Oxycodone Screen Not Detected (NotDetected); Phencyclidine (PCP) Not Detected (NotDetected); THC/Cannabinoid Screen Not Detected (NotDetected); Tricyclic Screen Not Detected (NotDetected)
== END 2022-04-25 06:45 | disposition home or self-care (01) ==
LOC: ERS 03:42
DX: F22 Delusional disorders (principal); I11.0 Hypertensive heart disease with heart failure; I50.9 Heart failure, unspecified; E78.5 Hyperlipidemia, unspecified; F17.210 Nicotine dependence, cigarettes, uncomplicated; Z79.899 Other long term (current) drug therapy
CPT/HCPCS: 80053; 80306; 80307; 81003; 82550; 84443; 85025; 99283

== ENCOUNTER 2022-04-27 13:48 | Observation (INO) | payer SELFPAY ==
[2022-04-27] MEDS ORDERED: hydrALAZINE 20 MG/ML VIAL ONE (14:14)
[2022-04-27] MEDS ORDERED: Ondansetron PF 4 MG/2 ML Vial ONE (14:14)
[2022-04-27 14:32] LABS: Hemoglobin 11.3 g/dL (14.0-18.0); Mean Corpuscular HGB CONC 32.5 g/dL (32.0-36.0); Mean Corpuscular Volume 89.3 fl (78.0-98.0); RBC Distribution Width 11.4 % (11.5-14.5); Red Blood Cell (RBC) Count 3.89 mill/uL (4.70-6.10); White Blood Cell (WBC) Count 7.7 10x3/uL (4.8-10.8)
[2022-04-27 14:33] LABS: %Eosinophils 0.2 % (0.0-10.0); %Lymphocytes 19.5 % (21.0-51.0); %Monocytes 5.7 % (0.0-10.0); %Neutrophils 74.3 % (42.0-75.0); Mean Platelet Volume 8.8 fL (7.4-10.4); Platelet Count 331 10x3/uL (130-400)
[2022-04-27 14:34] LABS: #Lymphocytes 1.5 thou/uL (1.20-3.40); #Monocytes 0.4 thou/uL (0.11-0.59); #Neutrophils 5.7 thou/uL (1.40-6.50); %Basophils 0.4 % (0.0-1.0)
[2022-04-27] MEDS ORDERED: Morphine 4 MG/ML VIAL ONE (14:46)
[2022-04-27 14:56] LABS: ALT (SGPT) 18 U/L (8-55); AST (SGOT) 27 U/L (5-34); Albumin 4.4 g/dL (3.5-5.0); Alkaline Phosphatase 79 U/L (40-110); Anion Gap 14 mmol/L (10-20); BUN (Urea Nitrogen) 17 mg/dL (8.9-20.6); Calc. Creatinine Clearance 0 mL/min (70-130); Calcium 9.6 mg/dL (7.8-10.44); Carbon Dioxide 24 mmol/L (22-29); Chloride 101 mmol/L (98-107); Estimated GFR 72; Glucose 120 mg/dL (70-105); Lipase 7 U/L (8-78); Potassium 2.9 mmol/L (3.5-5.1); Protein, Total 8.4 g/dL (6.0-8.3); Sodium 136 mmol/L (136-145)
[2022-04-27 15:15] LABS: CKMB 2.1 ng/mL (0-6.6)
[2022-04-27] MEDS ORDERED: Acetaminophen 325 MG TAB PO PRN (16:17)
[2022-04-27] MEDS ORDERED: Ondansetron PF 4 MG/2 ML Vial IVP PRN (16:17)
[2022-04-27] MEDS ORDERED: Bisacodyl 5 MG TAB PO PRN (16:17)
[2022-04-27] MEDS ORDERED: cloNIDine 0.1 MG TAB PO PRN (16:24)
[2022-04-27] MEDS ORDERED: Potassium Chloride 20 MEQ TAB PO SCH ×2 (17:45→20:00)
[2022-04-27 18:08] LABS: Troponin I 0.029 ng/mL (< 0.028)
[2022-04-27 18:15] VITALS: BMI 27.1
[2022-04-27] MEDS: Nicotine 21 MG PATCH TD SCH (22:21)
[2022-04-27] MEDS: hydrALAZINE 25 MG TAB PO SCH (22:21)
[2022-04-27] MEDS: Famotidine 20 MG TAB PO SCH (22:22)
[2022-04-28 05:45] LABS: Hemoglobin 10.8 g/dL (14.0-18.0); Mean Corpuscular Hemoglobin 28.7 pg (27.0-31.0); Mean Corpuscular Volume 89.6 fl (78.0-98.0); Mean Platelet Volume 9.2 fL (7.4-10.4); Platelet Count 320 10x3/uL (130-400); RBC Distribution Width 11.4 % (11.5-14.5); Red Blood Cell (RBC) Count 3.78 mill/uL (4.70-6.10)
[2022-04-28 06:15] LABS: Eosinophils 2 % (0-10); Lymphocytes 43 % (21-51); MDiff Complete? YES; Monocytes 8 % (0-10); Neutrophil 47 % (42-75)
[2022-04-28] MEDS: hydrALAZINE 25 MG TAB PO SCH (08:50)
[2022-04-28] MEDS: Famotidine 20 MG TAB PO SCH (08:50)
[2022-04-28] MEDS ORDERED: Lisinopril 20 MG TAB PO SCH ×2 (09:00→21:00)
[2022-04-28] MEDS ORDERED: FLU VACC QS2022-23(6MOS UP)/PF 60 MCG/0.5 ML SYRINGE IM ONE (09:00)
[2022-04-28] MEDS ORDERED: Lisinopril 10 MG TAB PO SCH (09:00)
[2022-04-28] MEDS ORDERED: Aspirin Chewable 81 MG TAB PO SCH (09:00)
[2022-04-28 09:07] LABS: Anion Gap 11 mmol/L (10-20); BUN (Urea Nitrogen) 17 mg/dL (8.9-20.6); Calc. Creatinine Clearance 66 mL/min (70-130); Calcium 9.1 mg/dL (7.8-10.44); Carbon Dioxide 26 mmol/L (22-29); Chloride 105 mmol/L (98-107); Estimated GFR 62; Glucose 74 mg/dL (70-105); Potassium 3.8 mmol/L (3.5-5.1); Sodium 138 mmol/L (136-145)
[2022-04-28] MEDS ORDERED: Sodium Chloride 0.9% 1,000 ML IV SCH (12:15)
[2022-04-28] MEDS ORDERED: NIFEdipine XL 30 MG TAB PO SCH (14:45)
[2022-04-28 15:50] VITALS: BP 160/100; TEMP 98.1
[2022-04-28] MEDS: Nicotine 21 MG PATCH TD SCH (17:15)
[2022-04-29] MEDS ORDERED: NIFEdipine XL 60 MG TAB PO SCH (09:00)
== END 2022-04-28 19:50 | disposition home or self-care (01) ==
LOC: ERS 13:48 → 2SW 16:09
PROVIDERS: ADMIT Internal Medicine; ATTEND Internal Medicine
DX: I16.1 Hypertensive emergency (principal); R77.8 Other specified abnormalities of plasma proteins; N17.9 Acute kidney failure, unspecified; I11.0 Hypertensive heart disease with heart failure; I50.9 Heart failure, unspecified; F17.210 Nicotine dependence, cigarettes, uncomplicated; E78.5 Hyperlipidemia, unspecified; E87.6 Hypokalemia; Z79.891 Long term (current) use of opiate analgesic; Z79.899 Other long term (current) drug therapy; Z20.822 Contact with and (suspected) exposure to COVID-19
CPT/HCPCS: 36415; 70450; 71045; 80048; 80053; 82553; 83690; 84484; 85025; 93005; 93306; 96372; 96374; 96375; G0378; J0360; J1650; J2270; J2405; J7050; U0003; U0005

== ENCOUNTER 2022-05-21 09:36 | Inpatient (IN) | payer SELFPAY ==
[2022-05-21 11:18] LABS: #Lymphocytes 1.7 thou/uL (1.20-3.40); #Monocytes 0.7 thou/uL (0.11-0.59); #Neutrophils 6.4 thou/uL (1.40-6.50); %Basophils 0.4 % (0.0-1.0); %Eosinophils 0.2 % (0.0-10.0); %Lymphocytes 19.1 % (21.0-51.0); %Monocytes 7.6 % (0.0-10.0); %Neutrophils 72.9 % (42.0-75.0); Hemoglobin 12.2 g/dL (14.0-18.0); Mean Corpuscular HGB CONC 31.7 g/dL (32.0-36.0); Mean Corpuscular Hemoglobin 28.4 pg (27.0-31.0); Mean Corpuscular Volume 89.7 fl (78.0-98.0); Platelet Count 316 10x3/uL (130-400); RBC Distribution Width 11.3 % (11.5-14.5); Red Blood Cell (RBC) Count 4.28 mill/uL (4.70-6.10); White Blood Cell (WBC) Count 8.8 10x3/uL (4.8-10.8)
[2022-05-21 11:40] LABS: Acetaminophen Less than 10.0 mcg/mL (10.0-30.0); Alcohol Less than 10 mg/dL (Less than 10); Salicylate Less than 8.0 mg/dL (15.0-30.0)
[2022-05-21 11:42] LABS: ALT (SGPT) 25 U/L (8-55); AST (SGOT) 31 U/L (5-34); Albumin 4.7 g/dL (3.5-5.0); Alkaline Phosphatase 109 U/L (40-110); Anion Gap 18 mmol/L (10-20); BUN (Urea Nitrogen) 20 mg/dL (8.9-20.6); Bilirubin, Total 0.9 mg/dL (0.2-1.2); Calc. Creatinine Clearance 0 mL/min (70-130); Calcium 9.8 mg/dL (7.8-10.44); Carbon Dioxide 24 mmol/L (22-29); Chloride 101 mmol/L (98-107); Estimated GFR 37; Globulin 4.5 g/dL (2.4-3.5); Glucose 96 mg/dL (70-105); Potassium 3.4 mmol/L (3.5-5.1); Protein, Total 9.2 g/dL (6.0-8.3); Sodium 140 mmol/L (136-145)
[2022-05-21 11:52] LABS: Amphetamine Not Detected (NotDetected); Barbiturates Screen Not Detected (NotDetected); Benzodiazepine Screen Not Detected (NotDetected); Cocaine Metabolite Screen Detected (NotDetected); Methadone Not Detected (NotDetected); Methamphetamine Not Detected (NotDetected); Opiate Screen Detected (NotDetected); Oxycodone Screen Not Detected (NotDetected); Phencyclidine (PCP) Not Detected (NotDetected); THC/Cannabinoid Screen Detected (NotDetected); Tricyclic Screen Not Detected (NotDetected)
[2022-05-21 11:54] LABS: Bacteria/HPF None Seen HPF (None Seen); Bilirubin Negative (Negative); Blood, Urine Negative (Negative); Clarity Clear (Clear); Glucose, Urine (Dipstick) Normal (Negative); Ketone, Urine Negative (Negative); Leukocyte Negative Leu/uL (Negative); Nitrite Negative (Negative); Protein, Urine (Dipstick) 50 mg/dL (Neg-Trace); RBC/HPF 0-3 HPF (0-3); Specific Gravity, Urine 1.024 (1.002-1.036); Squamous Epithelial None Seen HPF (0-3); Urobilinogen 6 mg/dL (Less than 2); WBC/HPF 0-3 HPF (0-3); pH, Urine 6.5 (5.0-9.0)
[2022-05-21 11:55] LABS: Sperm/HPF 2+ HPF (None Seen)
[2022-05-21] MEDS ORDERED: LORazepam 2 MG/ML SYR.(CARPUJECT) ONE (12:36)
[2022-05-21] MEDS ORDERED: hydrALAZINE 20 MG/ML VIAL SLOW IVP PRN (14:30)
[2022-05-21] MEDS ORDERED: Lorazepam 2 MG/ML VIAL SLOW IVP PRN (14:32)
[2022-05-21] MEDS ORDERED: Metoclopramide HCl 10 MG/2 ML VIAL IVP PRN (14:49)
[2022-05-21] MEDS ORDERED: niCARdipine 25 MG in Sodium Chloride 0.9% 250 ML 250 ML IVPB SCH (15:15)
[2022-05-21] MEDS ORDERED: hydrALAZINE 20 MG/ML VIAL ONE (15:24)
[2022-05-21 16:05] LABS: Magnesium 2.1 mg/dL (1.6-2.6)
[2022-05-21] MEDS: Potassium Chloride 20 MEQ TAB PO SCH ×2 (18:45→20:04)
[2022-05-21] MEDS: Sodium Chloride 0.9% 1,000 ML IV SCH ×2 (18:45→20:12)
[2022-05-21] MEDS: Gabapentin 300 MG CAP PO SCH ×2 (18:45→20:04)
[2022-05-21 19:55] VITALS: BMI 26.2
[2022-05-21] MEDS: Nicotine 21 MG PATCH TD SCH (20:19)
[2022-05-21] MEDS: traMADol HCl 50 MG TAB PO PRN (21:47)
[2022-05-22] MEDS: Sodium Chloride 0.9% 1,000 ML IV SCH ×2 (03:40→16:28)
[2022-05-22 04:18] LABS: #Eosinphils 0.3 thou/uL (0.0-0.7); #Lymphocytes 1.8 thou/uL (1.20-3.40); #Monocytes 0.8 thou/uL (0.11-0.59); #Neutrophils 4.5 thou/uL (1.40-6.50); %Basophils 0.6 % (0.0-1.0); %Eosinophils 4.3 % (0.0-10.0); %Monocytes 10.9 % (0.0-10.0); %Neutrophils 60.2 % (42.0-75.0); Hemoglobin 12.2 g/dL (14.0-18.0); Mean Corpuscular HGB CONC 34.1 g/dL (32.0-36.0); Mean Corpuscular Hemoglobin 30.8 pg (27.0-31.0); Mean Corpuscular Volume 90.1 fl (78.0-98.0); Mean Platelet Volume 9.4 fL (7.4-10.4); Platelet Count 248 10x3/uL (130-400); RBC Distribution Width 11.1 % (11.5-14.5); Red Blood Cell (RBC) Count 3.96 mill/uL (4.70-6.10); White Blood Cell (WBC) Count 7.6 10x3/uL (4.8-10.8)
[2022-05-22 04:37] LABS: Anion Gap 14 mmol/L (10-20); BUN (Urea Nitrogen) 23 mg/dL (8.9-20.6); Calc. Creatinine Clearance 60 mL/min (70-130); Calcium 8.9 mg/dL (7.8-10.44); Carbon Dioxide 22 mmol/L (22-29); Chloride 105 mmol/L (98-107); Estimated GFR 58; Glucose 101 mg/dL (70-105); Sodium 137 mmol/L (136-145)
[2022-05-22] MEDS: Gabapentin 300 MG CAP PO SCH ×3 (09:18→20:24)
[2022-05-22] MEDS: traMADol HCl 50 MG TAB PO PRN ×2 (09:19→17:42)
[2022-05-22] MEDS ORDERED: NIFEdipine XL 60 MG TAB PO SCH (11:00)
[2022-05-22] MEDS: Acetaminophen 325 MG TAB PO PRN (11:28)
[2022-05-22] MEDS ORDERED: cloNIDine 0.2 MG TAB PO SCH (15:00)
[2022-05-22] MEDS: cloNIDine 0.2 MG TAB PO SCH ×2 (15:43→20:25)
[2022-05-22] MEDS ORDERED: Sodium Chloride 0.9% 500 ML IV SCH (16:00)
[2022-05-22] MEDS: Nicotine 21 MG PATCH TD SCH (16:28)
[2022-05-22 17:40] LABS: Bacteria/HPF None Seen HPF (None Seen); Bilirubin Negative (Negative); Blood, Urine Negative (Negative); CAUTI Indications for Culture Pelvic or flank pain; Clarity Clear (Clear); Glucose, Urine (Dipstick) Normal (Negative); Ketone, Urine Negative (Negative); Leukocyte Negative Leu/uL (Negative); Nitrite Negative (Negative); Protein, Urine (Dipstick) Negative (Neg-Trace); RBC/HPF 0-3 HPF (0-3); Specific Gravity, Urine 1.019 (1.002-1.036); Squamous Epithelial 0-3 HPF (0-3); WBC/HPF 0-3 HPF (0-3); pH, Urine 5.5 (5.0-9.0)
[2022-05-22 17:42] LABS: Urine Culture Reflex No No
[2022-05-22] MEDS ORDERED: Famotidine 20 MG TAB PO SCH (18:15)
[2022-05-22 21:36] LABS: Chlam.trachomatis by PCR,Urine Not Detected (NotDetected)
[2022-05-23] MEDS: traMADol HCl 50 MG TAB PO PRN ×2 (02:23→12:31)
[2022-05-23] MEDS: Sodium Chloride 0.9% 1,000 ML IV SCH (05:45)
[2022-05-23 06:50] LABS: #Eosinphils 0.2 thou/uL (0.0-0.7); #Lymphocytes 2.5 thou/uL (1.20-3.40); #Monocytes 0.6 thou/uL (0.11-0.59); #Neutrophils 2.8 thou/uL (1.40-6.50); %Basophils 0.1 % (0.0-1.0); %Eosinophils 3.6 % (0.0-10.0); %Lymphocytes 40.8 % (21.0-51.0); %Monocytes 9.9 % (0.0-10.0); %Neutrophils 45.6 % (42.0-75.0); Hemoglobin 11.7 g/dL (14.0-18.0); Mean Corpuscular HGB CONC 31.7 g/dL (32.0-36.0); Mean Corpuscular Hemoglobin 28.9 pg (27.0-31.0); Mean Corpuscular Volume 91.2 fl (78.0-98.0); Mean Platelet Volume 9.2 fL (7.4-10.4); Platelet Count 244 10x3/uL (130-400); Red Blood Cell (RBC) Count 4.05 mill/uL (4.70-6.10); White Blood Cell (WBC) Count 6.1 10x3/uL (4.8-10.8)
[2022-05-23 07:11] LABS: Anion Gap 13 mmol/L (10-20); BUN (Urea Nitrogen) 16 mg/dL (8.9-20.6); CRP (Inflammatory) 0.68 mg/dL (= or < 0.5); Calc. Creatinine Clearance 76 mL/min (70-130); Calcium 9.4 mg/dL (7.8-10.44); Carbon Dioxide 21 mmol/L (22-29); Chloride 106 mmol/L (98-107); Estimated GFR 77; Glucose 85 mg/dL (70-105); Potassium 4.1 mmol/L (3.5-5.1); Sodium 136 mmol/L (136-145)
[2022-05-23] MEDS: Gabapentin 300 MG CAP PO SCH ×2 (08:01→16:47)
[2022-05-23] MEDS: cloNIDine 0.2 MG TAB PO SCH ×2 (08:01→16:47)
[2022-05-23] MEDS: Acetaminophen 325 MG TAB PO PRN ×2 (08:02→16:50)
[2022-05-23] MEDS ORDERED: NIFEdipine XL 60 MG TAB PO SCH ×2 (09:00)
[2022-05-23] MEDS ORDERED: Famotidine 20 MG TAB PO SCH (09:00)
[2022-05-23] MEDS: Nicotine 21 MG PATCH TD SCH (16:48)
[2022-05-23 16:53] VITALS: BP 112/75; TEMP 98
[2022-05-24] MEDS ORDERED: FLU VACC QS2022-23(6MOS UP)/PF 60 MCG/0.5 ML SYRINGE IM ONE (09:00)
== END 2022-05-23 17:07 | disposition home or self-care (01) | DRG 918 ==
LOC: ERS 09:36 → CCU 12:51 → T4-B 05-22 17:31
PROVIDERS: ADMIT Hospitalist; ATTEND Hospitalist
DX: T40.5X1A Poisoning by cocaine, accidental (unintentional), initial encounter (principal); I16.1 Hypertensive emergency; N17.9 Acute kidney failure, unspecified; I12.9 Hypertensive chronic kidney disease with stage 1 through stage 4 chronic kidney disease, or unspecified chronic kidney disease; F14.10 Cocaine abuse, uncomplicated; F12.10 Cannabis abuse, uncomplicated; G89.29 Other chronic pain; D63.1 Anemia in chronic kidney disease; N18.30 Chronic kidney disease, stage 3 unspecified; F17.210 Nicotine dependence, cigarettes, uncomplicated; E87.6 Hypokalemia; R94.31 Abnormal electrocardiogram [ECG] [EKG]; F22 Delusional disorders; F11.10 Opioid abuse, uncomplicated; R30.0 Dysuria; R35.0 Frequency of micturition; Z71.51 Drug abuse counseling and surveillance of drug abuser; Z79.899 Other long term (current) drug therapy
CPT/HCPCS: 36415; 36416; 71045; 76770; 80048; 80053; 80306; 80307; 81001; 81003; 81015; 82550; 83735; 83880; 84443; 84484; 85025; 86140; 87491; 87591; 93005; 96374; 96375; J0360; J1611; J2060; J7030; J7050